=== PATIENT | male | born 1970 | race Caucasian/White ===

== ENCOUNTER → 2020-03-28 08:45 | Outpatient (BNVA) | payer OTHER, SELFPAY | PROVIDERS: PCP Internal Medicine; Referring Provider Internal Medicine; Visit Provider Student in an Organized Health Care Education/Training Program | DX: Z13.89 Encounter for screening for other disorder (principal) ==

== ENCOUNTER 2020-04-21 08:28 | Outpatient (REF) | payer OTHER, SELFPAY ==
[2020-04-21 09:06] LABS: MANUAL DIFF FLAG NO
[2020-04-21 09:11] LABS: Basophils Absolute Auto 0.1 X10*3/uL (0.0-0.2); Basophils Percent Auto 0.6 % (0-2); Eosinophils Absolute Auto 0.3 X10*3/uL (0.0-0.4); Hemoglobin 15.9 g/dl (14.0-18.0); Imm Gran Abs Auto 0.03 X10*3/uL (0.00-0.03); Imm Gran Pct Auto 0.4 % (0.0-0.4); Lymphocytes Absolute Auto 1.9 X10*3/uL (1.2-4.9); Lymphocytes Percent Auto 23.2 % (20-40); Mean Corpuscular HGB Conc 33.8 g/dl (31.0-36.0); Mean Corpuscular Hemoglobin 31.6 pg (27.0-33.0); Mean Corpuscular Volume 93.4 fL (80-98); Monocytes Absolute Auto 0.6 X10*3/uL (0.1-1.2); Monocytes Percent Auto 7.5 % (2-11); Neutrophils Absolute Auto 5.4 X10*3/uL (2.0-8.3); Neutrophils Percent Auto 65.3 % (45-73); Platelet Count 299 X10*3/uL (160-400); Red Blood Count 5.03 X10*6/uL (4.60-5.80); Red Cell Distribution Width 12.3 % (11.0-16.0); White Blood Count 8.2 X10*3/uL (4.8-10.8)
[2020-04-21 09:43] LABS: Alanine Aminotransferase 48 U/L (0-40); Albumin Level 4.7 g/dL (3.5-5.0); Alkaline Phosphatase 88 U/L (39-117); Anion Gap 14 (12-20); Aspartate Amino Transferase 21 U/L (5-37); Bilirubin Total 0.6 mg/dL (0.0-1.0); Blood Urea Nitrogen 14 mg/dL (9-16); C Reactive Protein 0.18 mg/dL (< or = 0.50); Calcium 9.3 mg/dL (8.4-10.2); Carbon Dioxide 23 mmol/L (22-29); Chloride 107 mmol/L (96-108); Estimated Glomerular Filt Rate > 60; Glucose Random 106 mg/dL (60-115); Potassium 4.7 mmol/l (3.3-5.1); Sodium 139 mmol/L (135-145); Total Protein 7.3 g/dL (6.5-8.0)
[2020-04-21 10:03] LABS: Erythrocyte Sedimentation Rate 4 MM/HR (0-15)
== END 2020-04-21 08:29 | disposition home or self-care (01) ==
LOC: HO.LAB 08:28
PROVIDERS: PCP Internal Medicine; Visit Provider Student in an Organized Health Care Education/Training Program
DX: L40.50 Arthropathic psoriasis, unspecified (principal)
CPT/HCPCS: 36415; 80053; 85025; 85652; 86140

== ENCOUNTER → 2020-06-29 08:48 | Outpatient (BNVA) | payer OTHER, SELFPAY | PROVIDERS: Visit Provider Student in an Organized Health Care Education/Training Program ==

== ENCOUNTER 2021-02-02 07:52 | Outpatient (REF) | payer OTHER, SELFPAY ==
[2021-02-02 08:39] LABS: MANUAL DIFF FLAG NO
[2021-02-02 09:07] LABS: Basophils Percent Auto 0.4 % (0-2); Eosinophils Absolute Auto 0.2 X10*3/uL (0.0-0.4); Eosinophils Percent Auto 2.4 % (0-4); Hematocrit 47.4 % (42.0-52.0); Hemoglobin 16.1 g/dl (14.0-18.0); Imm Gran Abs Auto 0.04 X10*3/uL (0.00-0.03); Imm Gran Pct Auto 0.4 % (0.0-0.4); Lymphocytes Absolute Auto 2.3 X10*3/uL (1.2-4.9); Lymphocytes Percent Auto 23.7 % (20-40); Mean Corpuscular Volume 91.3 fL (80.0-98.0); Mean Platelet Volume 10.1 fL (9.4-12.4); Monocytes Absolute Auto 0.7 X10*3/uL (0.1-1.2); Monocytes Percent Auto 6.9 % (2-11); Neutrophils Absolute Auto 6.3 x10*3/uL (2.0-8.3); Neutrophils Percent Auto 66.2 % (45-73); Platelet Count 297 X10*3/uL (160-400); Red Blood Count 5.19 X10*6/uL (4.60-5.80); White Blood Count 9.6 X10*3/uL (4.8-10.8)
[2021-02-02 09:36] LABS: Alanine Aminotransferase 46 U/L (0-40); Albumin Level 4.8 g/dL (3.5-5.0); Alkaline Phosphatase 98 U/L (39-117); Anion Gap 12 (12-20); Aspartate Amino Transferase 22 U/L (5-37); Bilirubin Total 0.5 mg/dL (0.0-1.0); Blood Urea Nitrogen 16 mg/dL (9-16); C Reactive Protein 0.18 mg/dL (< or = 0.50); Calcium 9.8 mg/dL (8.4-10.2); Carbon Dioxide 24 mmol/L (22-29); Chloride 104 mmol/L (96-108); Estimated Glomerular Filt Rate > 60; Glucose Random 114 mg/dL (60-115); Potassium 4.6 mmol/L (3.3-5.1); Sodium 135 mmol/L (135-145); Total Protein 7.5 g/dL (6.5-8.0)
[2021-02-02 10:05] LABS: Erythrocyte Sedimentation Rate 4 MM/HR (0-15)
== END 2021-02-02 07:53 | disposition home or self-care (01) ==
LOC: HO.LAB 07:52
PROVIDERS: PCP Internal Medicine; Visit Provider Nurse Practitioner Family
DX: L40.50 Arthropathic psoriasis, unspecified (principal); Z79.899 Other long term (current) drug therapy
CPT/HCPCS: 36415; 80053; 85025; 85652; 86140

== ENCOUNTER → 2021-02-02 08:28 | Outpatient (BNVA) | payer OTHER, SELFPAY | PROVIDERS: PCP Internal Medicine; Visit Provider Nurse Practitioner Family | DX: L40.50 Arthropathic psoriasis, unspecified (principal); Z23 Encounter for immunization; Z79.899 Other long term (current) drug therapy | CPT/HCPCS: 90686 ==

== ENCOUNTER 2021-03-26 11:50 | Outpatient (REF) | payer OTHER, SELFPAY ==
[2021-03-26 12:46] LABS: Influenza A PCR NEGATIVE (Negative); Influenza B PCR NEGATIVE (Negative); Resp Syncy Virus RNA Qual PCR NEGATIVE (Negative); SARS COV2 PCR INHOUSE POSITIVE (Negative)
== END 2021-03-26 11:51 | disposition home or self-care (01) ==
LOC: HO.LNP 11:50
PROVIDERS: Visit Provider Family Medicine
DX: B34.9 Viral infection, unspecified (principal); Z20.822 Contact with and (suspected) exposure to COVID-19
CPT/HCPCS: 0241U

== ENCOUNTER 2021-06-01 07:52 | Outpatient (REF) | payer OTHER, SELFPAY ==
[2021-06-01 09:01] LABS: MANUAL DIFF FLAG NO
[2021-06-01 09:13] LABS: Basophils Absolute Auto 0.1 X10*3/uL (0.0-0.2); Basophils Percent Auto 0.5 % (0-2); Eosinophils Absolute Auto 0.3 X10*3/uL (0.0-0.4); Eosinophils Percent Auto 3.3 % (0-4); Hematocrit 47.3 % (42.0-52.0); Hemoglobin 15.5 g/dl (14.0-18.0); Imm Gran Abs Auto 0.06 X10*3/uL (0.00-0.03); Imm Gran Pct Auto 0.6 % (0.0-0.4); Lymphocytes Absolute Auto 2.1 X10*3/uL (1.2-4.9); Lymphocytes Percent Auto 21.9 % (20-40); Mean Corpuscular HGB Conc 32.8 g/dl (31.0-36.0); Mean Corpuscular Hemoglobin 30.6 pg (27.0-33.0); Mean Corpuscular Volume 93.5 fL (80.0-98.0); Mean Platelet Volume 9.9 fL (9.4-12.4); Monocytes Absolute Auto 0.8 X10*3/uL (0.1-1.2); Monocytes Percent Auto 8.4 % (2-11); Neutrophils Absolute Auto 6.4 x10*3/uL (2.0-8.3); Neutrophils Percent Auto 65.3 % (45-73); Platelet Count 269 X10*3/uL (160-400); Red Blood Count 5.06 X10*6/uL (4.60-5.80); Red Cell Distribution Width 13.2 % (11.0-16.0); White Blood Count 9.8 X10*3/uL (4.8-10.8)
[2021-06-01 09:37] LABS: Alanine Aminotransferase 32 U/L (0-40); Albumin Level 4.7 g/dL (3.5-5.0); Alkaline Phosphatase 92 U/L (39-117); Anion Gap 13 (12-20); Aspartate Amino Transferase 18 U/L (5-37); Bilirubin Total 0.6 mg/dL (0.0-1.0); Blood Urea Nitrogen 16 mg/dL (9-16); C Reactive Protein 0.19 mg/dL (< or = 0.50); Calcium 10.1 mg/dL (8.4-10.2); Carbon Dioxide 24 mmol/L (22-29); Chloride 107 mmol/L (96-108); Estimated Glomerular Filt Rate > 60; Glucose Random 114 mg/dL (60-115); Potassium 4.9 mmol/L (3.3-5.1); Sodium 139 mmol/L (135-145); Total Protein 7.5 g/dL (6.5-8.0)
[2021-06-01 09:53] LABS: Erythrocyte Sedimentation Rate 2 MM/HR (0-15)
== END 2021-06-01 07:53 | disposition home or self-care (01) ==
LOC: HO.LAB 07:52
PROVIDERS: PCP Internal Medicine; Visit Provider Nurse Practitioner Family
DX: L40.50 Arthropathic psoriasis, unspecified (principal); Z79.899 Other long term (current) drug therapy
CPT/HCPCS: 36415; 80053; 85025; 85652; 86140

== ENCOUNTER 2021-10-10 10:53 | Outpatient (REF) | payer OTHER, SELFPAY ==
[2021-10-10 11:05] LABS: MANUAL DIFF FLAG NO
[2021-10-10 12:02] LABS: Basophils Percent Auto 0.4 % (0-2); Eosinophils Absolute Auto 0.2 X10*3/uL (0.0-0.4); Eosinophils Percent Auto 1.9 % (0-4); Hematocrit 46.1 % (42.0-52.0); Hemoglobin 15.8 g/dl (14.0-18.0); Imm Gran Abs Auto 0.06 X10*3/uL (0.00-0.03); Imm Gran Pct Auto 0.6 % (0.0-0.4); Lymphocytes Percent Auto 18.9 % (20-40); Mean Corpuscular HGB Conc 34.3 g/dl (31.0-36.0); Mean Corpuscular Hemoglobin 31.9 pg (27.0-33.0); Mean Corpuscular Volume 92.9 fL (80.0-98.0); Mean Platelet Volume 10.2 fL (9.4-12.4); Monocytes Absolute Auto 0.9 X10*3/uL (0.1-1.2); Neutrophils Absolute Auto 7.6 x10*3/uL (2.0-8.3); Neutrophils Percent Auto 70.2 % (45-73); Platelet Count 281 X10*3/uL (160-400); Red Blood Count 4.96 X10*6/uL (4.60-5.80); Red Cell Distribution Width 12.3 % (11.0-16.0); White Blood Count 10.8 X10*3/uL (4.8-10.8)
[2021-10-10 12:36] LABS: Alanine Aminotransferase 46 U/L (0-40); Albumin Level 4.9 g/dL (3.5-5.0); Alkaline Phosphatase 89 U/L (39-117); Anion Gap 14 (12-20); Aspartate Amino Transferase 22 U/L (5-37); Bilirubin Total 0.6 mg/dL (0.0-1.0); Blood Urea Nitrogen 12 mg/dL (9-16); C Reactive Protein 0.28 mg/dL (< or = 0.50); Calcium 9.6 mg/dL (8.4-10.2); Carbon Dioxide 23 mmol/L (22-29); Chloride 104 mmol/L (96-108); Estimated Glomerular Filt Rate > 60; Glucose Random 105 mg/dL (60-115); Potassium 4.5 mmol/L (3.3-5.1); Sodium 136 mmol/L (135-145); Total Protein 7.7 g/dL (6.5-8.0)
[2021-10-10 12:42] LABS: Erythrocyte Sedimentation Rate 4 MM/HR (0-15)
== END 2021-10-10 10:54 | disposition home or self-care (01) ==
LOC: HO.LAB 10:53
PROVIDERS: PCP Internal Medicine; Visit Provider Nurse Practitioner Family
DX: L40.50 Arthropathic psoriasis, unspecified (principal); Z79.899 Other long term (current) drug therapy
CPT/HCPCS: 36415; 80053; 85025; 85652; 86140

== ENCOUNTER 2021-10-18 13:26 | Outpatient (REF) | payer OTHER, SELFPAY ==
[2021-10-18 14:34] LABS: Alanine Aminotransferase 41 U/L (0-40); Aspartate Amino Transferase 24 U/L (5-37)
== END 2021-10-18 13:27 | disposition home or self-care (01) ==
LOC: HO.LAB 13:26
PROVIDERS: PCP Internal Medicine; Visit Provider Nurse Practitioner Family
DX: Z79.899 Other long term (current) drug therapy (principal)
CPT/HCPCS: 36415; 84450; 84460

== ENCOUNTER 2021-12-19 08:40 | Outpatient (REF) | payer OTHER, SELFPAY ==
[2021-12-19 10:21] LABS: MANUAL DIFF FLAG NO
[2021-12-19 10:32] LABS: Basophils Percent Auto 0.4 % (0-2); Eosinophils Absolute Auto 0.3 X10*3/uL (0.0-0.4); Eosinophils Percent Auto 3.1 % (0-4); Hemoglobin 16.2 g/dl (14.0-18.0); Imm Gran Abs Auto 0.04 X10*3/uL (0.00-0.03); Imm Gran Pct Auto 0.4 % (0.0-0.4); Lymphocytes Absolute Auto 1.9 X10*3/uL (1.2-4.9); Lymphocytes Percent Auto 21.3 % (20-40); Mean Corpuscular HGB Conc 33.8 g/dl (31.0-36.0); Mean Corpuscular Hemoglobin 30.6 pg (27.0-33.0); Mean Corpuscular Volume 90.7 fL (80.0-98.0); Mean Platelet Volume 9.9 fL (9.4-12.4); Monocytes Absolute Auto 0.6 X10*3/uL (0.1-1.2); Neutrophils Absolute Auto 6.1 x10*3/uL (2.0-8.3); Neutrophils Percent Auto 67.8 % (45-73); Platelet Count 294 X10*3/uL (160-400); Red Blood Count 5.29 X10*6/uL (4.60-5.80); Red Cell Distribution Width 12.3 % (11.0-16.0); White Blood Count 9.1 X10*3/uL (4.8-10.8)
[2021-12-19 10:57] LABS: Alanine Aminotransferase 47 U/L (0-40); Aspartate Amino Transferase 23 U/L (5-37); C Reactive Protein 0.23 mg/dL (< or = 0.50); Estimated Glomerular Filt Rate > 60
[2021-12-19 11:11] LABS: Erythrocyte Sedimentation Rate 6 MM/HR (0-15)
== END 2021-12-19 08:41 | disposition home or self-care (01) ==
LOC: HO.10HDL 08:40
PROVIDERS: Visit Provider Nurse Practitioner Family
DX: L40.50 Arthropathic psoriasis, unspecified (principal); Z79.899 Other long term (current) drug therapy
CPT/HCPCS: 36415; 82565; 84450; 84460; 85025; 85652; 86140

== ENCOUNTER 2021-12-28 09:41 | Outpatient (REF) | payer OTHER, SELFPAY ==
[2021-12-28 10:31] LABS: MANUAL DIFF FLAG NO
[2021-12-28 10:37] LABS: Basophils Percent Auto 0.3 % (0-2); Eosinophils Absolute Auto 0.3 X10*3/uL (0.0-0.4); Eosinophils Percent Auto 3.3 % (0-4); Hematocrit 47.4 % (42.0-52.0); Imm Gran Abs Auto 0.04 X10*3/uL (0.00-0.03); Imm Gran Pct Auto 0.5 % (0.0-0.4); Lymphocytes Absolute Auto 1.8 X10*3/uL (1.2-4.9); Lymphocytes Percent Auto 20.6 % (20-40); Mean Corpuscular HGB Conc 33.8 g/dl (31.0-36.0); Mean Corpuscular Hemoglobin 31.1 pg (27.0-33.0); Mean Platelet Volume 10.1 fL (9.4-12.4); Monocytes Absolute Auto 0.7 X10*3/uL (0.1-1.2); Monocytes Percent Auto 8.1 % (2-11); Neutrophils Absolute Auto 5.8 x10*3/uL (2.0-8.3); Neutrophils Percent Auto 67.2 % (45-73); Platelet Count 286 X10*3/uL (160-400); Red Blood Count 5.15 X10*6/uL (4.60-5.80); Red Cell Distribution Width 12.2 % (11.0-16.0); White Blood Count 8.7 X10*3/uL (4.8-10.8)
[2021-12-28 10:59] LABS: Alanine Aminotransferase 39 U/L (0-40); Aspartate Amino Transferase 21 U/L (5-37); C Reactive Protein 0.21 mg/dL (< or = 0.50); Estimated Glomerular Filt Rate > 60
[2021-12-28 11:13] LABS: Erythrocyte Sedimentation Rate 5 MM/HR (0-15)
[2021-12-28 11:19] LABS: HBS Num1 1.47 mIU/mL (0-7.99); HBc Num1 0.04 S/CO (0.00-0.79); HBsAGNum1 0.18 S/CO (0.00-0.99); Hepatitis A Antibody IgM 0.16 Index (0-0.79); Hepatitis B Core Antibody Nonreactive (Nonreactive); Hepatitis B Surface Antigen Negative (Negative); ~HepC Num1 0.11 S/CO (0.00-0.79); ~Hepatitis A Antibody IgM Nonreactive (Nonreactive); ~Hepatitis B Surface Antibody NONREACTIVE (Nonreactive); ~Hepatitis C Antibody Nonreactive (Nonreactive)
[2022-01-01 12:51] LABS: TS Negative Control Passed; TS Panel A 0; TS Panel B 1; TS Positive Control Passed; TSpotTB Negative (Negative)
== END 2021-12-28 09:42 | disposition home or self-care (01) ==
LOC: HO.10HDL 09:41
PROVIDERS: Visit Provider Nurse Practitioner Family
DX: L40.50 Arthropathic psoriasis, unspecified (principal); Z79.899 Other long term (current) drug therapy
CPT/HCPCS: 36415; 82565; 84450; 84460; 85025; 85652; 86140; 86481; 86704; 86706; 86709; 86803; 87340

== ENCOUNTER 2022-04-10 08:20 | Outpatient (REF) | payer OTHER, SELFPAY ==
[2022-04-10 09:21] LABS: MANUAL DIFF FLAG NO
[2022-04-10 09:44] LABS: Basophils Absolute Auto 0.1 X10*3/uL (0.0-0.2); Basophils Percent Auto 0.6 % (0-2); Eosinophils Absolute Auto 0.4 X10*3/uL (0.0-0.4); Eosinophils Percent Auto 4.3 % (0-4); Hematocrit 46.3 % (42.0-52.0); Hemoglobin 15.7 g/dl (14.0-18.0); Imm Gran Abs Auto 0.02 X10*3/uL (0.00-0.03); Imm Gran Pct Auto 0.2 % (0.0-0.4); Lymphocytes Absolute Auto 2.1 X10*3/uL (1.2-4.9); Lymphocytes Percent Auto 25.4 % (20-40); Mean Corpuscular HGB Conc 33.9 g/dl (31.0-36.0); Mean Corpuscular Hemoglobin 30.4 pg (27.0-33.0); Mean Corpuscular Volume 89.7 fL (80.0-98.0); Monocytes Absolute Auto 0.6 X10*3/uL (0.1-1.2); Monocytes Percent Auto 7.4 % (2-11); Neutrophils Absolute Auto 5.1 x10*3/uL (2.0-8.3); Neutrophils Percent Auto 62.1 % (45-73); Platelet Count 290 X10*3/uL (160-400); Red Blood Count 5.16 X10*6/uL (4.60-5.80); Red Cell Distribution Width 11.9 % (11.0-16.0); White Blood Count 8.2 X10*3/uL (4.8-10.8)
[2022-04-10 10:21] LABS: Alanine Aminotransferase 26 U/L (0-40); Albumin Level 4.6 g/dL (3.5-5.0); Alkaline Phosphatase 89 U/L (39-117); Anion Gap 11 (12-20); Aspartate Amino Transferase 18 U/L (5-37); Bilirubin Total 0.5 mg/dL (0.0-1.0); Blood Urea Nitrogen 15 mg/dL (9-16); Calcium 9.5 mg/dL (8.4-10.2); Carbon Dioxide 23 mmol/L (22-29); Chloride 107 mmol/L (96-108); Estimated Glomerular Filt Rate > 60; Glucose Random 111 mg/dL (60-115); Potassium 4.3 mmol/L (3.3-5.1); Sodium 137 mmol/L (135-145); Total Protein 7.3 g/dL (6.5-8.0)
[2022-04-10 10:31] LABS: Erythrocyte Sedimentation Rate 2 MM/HR (0-15)
== END 2022-04-10 08:21 | disposition home or self-care (01) ==
LOC: HO.LAB 08:20
PROVIDERS: PCP Internal Medicine; Visit Provider Nurse Practitioner Family
DX: L40.50 Arthropathic psoriasis, unspecified (principal); L50.9 Urticaria, unspecified; Z79.899 Other long term (current) drug therapy
CPT/HCPCS: 36415; 80053; 85025; 85652; 86140

== ENCOUNTER → 2022-05-08 07:24 | Outpatient (BNVA) | payer OTHER, SELFPAY | PROVIDERS: PCP Internal Medicine; Visit Provider Nurse Practitioner Family | DX: Z13.89 Encounter for screening for other disorder (principal) ==

== ENCOUNTER → 2022-06-27 07:23 | Outpatient (BNVA) | payer OTHER, SELFPAY | PROVIDERS: PCP Internal Medicine; Visit Provider Nurse Practitioner Family | DX: Z13.89 Encounter for screening for other disorder (principal) ==

== ENCOUNTER 2022-08-09 10:46 | Outpatient (REF) | payer OTHER, SELFPAY ==
[2022-08-09 13:24] LABS: MANUAL DIFF FLAG NO
[2022-08-09 13:33] LABS: Basophils Absolute Auto 0.1 X10*3/uL (0.0-0.2); Basophils Percent Auto 0.5 % (0-2); Eosinophils Absolute Auto 0.3 X10*3/uL (0.0-0.4); Eosinophils Percent Auto 3.3 % (0-4); Hematocrit 45.9 % (42.0-52.0); Hemoglobin 15.5 g/dl (14.0-18.0); Imm Gran Abs Auto 0.03 X10*3/uL (0.00-0.03); Imm Gran Pct Auto 0.3 % (0.0-0.4); Lymphocytes Percent Auto 21.1 % (20-40); Mean Corpuscular HGB Conc 33.8 g/dl (31.0-36.0); Mean Corpuscular Hemoglobin 30.7 pg (27.0-33.0); Mean Corpuscular Volume 90.9 fL (80.0-98.0); Mean Platelet Volume 10.6 fL (9.4-12.4); Monocytes Absolute Auto 0.8 X10*3/uL (0.1-1.2); Neutrophils Absolute Auto 6.4 x10*3/uL (2.0-8.3); Neutrophils Percent Auto 66.8 % (45-73); Platelet Count 287 X10*3/uL (160-400); Red Blood Count 5.05 X10*6/uL (4.60-5.80); Red Cell Distribution Width 12.4 % (11.0-16.0); White Blood Count 9.5 X10*3/uL (4.8-10.8)
[2022-08-09 13:50] LABS: Alanine Aminotransferase 26 U/L (0-40); Albumin Level 4.6 g/dL (3.5-5.0); Alkaline Phosphatase 94 U/L (39-117); Anion Gap 13 (12-20); Aspartate Amino Transferase 17 U/L (5-37); Bilirubin Total 0.6 mg/dL (0.0-1.0); Blood Urea Nitrogen 18 mg/dL (9-16); C Reactive Protein 0.14 mg/dL (< or = 0.50); Calcium 9.3 mg/dL (8.4-10.2); Carbon Dioxide 25 mmol/L (22-29); Chloride 105 mmol/L (96-108); Estimated Glomerular Filt Rate > 60; Glucose Random 96 mg/dL (60-115); Potassium 4.6 mmol/L (3.3-5.1); Sodium 138 mmol/L (135-145); Total Protein 7.2 g/dL (6.5-8.0)
[2022-08-09 14:19] LABS: Erythrocyte Sedimentation Rate 3 MM/HR (0-15)
== END 2022-08-09 10:47 | disposition home or self-care (01) ==
LOC: HO.10HDL 10:46
PROVIDERS: Visit Provider Nurse Practitioner Family
DX: L40.50 Arthropathic psoriasis, unspecified (principal)
CPT/HCPCS: 36415; 80053; 85025; 85652; 86140

== ENCOUNTER 2022-10-08 07:49 | Outpatient (AMB) | payer OTHER, SELFPAY ==
[2022-10-08 08:07] VITALS: BP 121/80; PULSE 80; TEMP 36.5; BMI 31.1
--- NOTE | 2022-10-08 08:07 | A.OFFVIS_ITS ---
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 Doing well overall. Compliant with Enbrel weekly. Denies any joint swelling. Gets occasional short-lived and joint pain and stiffness with activity. Occasionally takes an Aleve or Advil once a week when he is going out to play golf. Denies any psoriasis skin lesions. Continues to have psoriatic nails in the left hand. those have not improved or progressed [facility] Medical History Deviated nasal septum Hyperlipidemia PSA (psoriatic arthritis) Psoriasis Steatosis, liver Surgical History History of nasal surgery Family History Father Diabetes HTN (hypertension) Mother Diabetes Social History Household Members: Spouse Housing: House Alcohol intake: current Alcohol intake frequency: holidays/special occasions only Patient Tobacco Use Status: Former Tobacco user Review of Systems [facility] [place] Physical Exam Const General: cooperative and healthy appearing Nutritional Appearance: obese Orientation/consciousness: patient oriented x3 Limitations: no limitations HEENT Head: Yes normocephalic and Yes atraumatic Mouth: moist mucous membranes Resp Effort & Inspection: normal respiratory effort and able to speak in complete sentences Auscultation: clear to auscultation bilaterally GI Inspection: No distended Palpation (GI): Soft to palpation and nontender Neuro General: patient oriented x3 Extrem Other: Minimal osteoarthritic changes of both hands. No active synovitis Left hand nail onycholysis Assessment & Plan Assessment & Plan (1) PSA (psoriatic arthritis): Comment: Methotrexate: Treated for 13 years. Stopped December 2021 due to increased LFTs. Humira: 02/2022 -March 2021. Stopped due to diffuse rash and hives Enbrel: April 2021 to present Code(s): L40.50 - Arthropathic psoriasis, unspecified Plan: Psoriatic arthritis appears well controlled on Enbrel. Patient is tolerating Enbrel without issue. Joint pain is well controlled. No synovitis on exam. He continues to have some nail onycholysis on his left hand. Not bothersome for him. Recent blood work unremarkable. Continue Enbrel once weekly Blood work before next visit in 4 months Orders: Orders Comprehensive Met. Panel 4 Months L40.50 - Arthropathic psoriasis, unspecified C Reactive Protein 4 Months L40.50 - Arthropathic psoriasis, unspecified Complete Blood Count Auto Diff 4 Months L40.50 - Arthropathic psoriasis, unspecified Erythrocyte Sedimentation Rate 4 Months L40.50 - Arthropathic psoriasis, unspecified T Spot TB 4 Months Z11.7 - Encounter for testing for latent tuberculosis infect ion Coding Level of Care Code Est Pt Level 3 (59195) Diagnoses PSA (psoriatic arthritis) L40.50
== END 2022-10-08 08:16 | disposition home or self-care (01) ==
PROVIDERS: PCP Internal Medicine; Visit Provider Student in an Organized Health Care Education/Training Program
DX: L40.50 Arthropathic psoriasis, unspecified (principal)
CPT/HCPCS: 99213

== ENCOUNTER → 2022-10-08 07:49 | Outpatient (BNVA) | payer OTHER, SELFPAY | PROVIDERS: PCP Internal Medicine; Visit Provider Student in an Organized Health Care Education/Training Program | DX: L40.50 Arthropathic psoriasis, unspecified (principal) ==

== ENCOUNTER 2023-01-07 14:49 | Outpatient (AMB) | payer OTHER, SELFPAY ==
[2023-01-07 14:54] VITALS: BP 128/74; PULSE 86; O2SAT 98; BMI 31.0
--- NOTE | 2023-01-07 14:54 | A.OFFPC_ITS ---
Vital Signs 01/07/23 14:54 Height 6 ft 3 in Weight 248 lb BMI 31.0 BP 128/74 Blood Pressure Location Rt radial Position Sitting Pulse 86 Pulse Source Pulse Oximeter Pulse Oximetry (%) 98 Oxygen Delivery Method Room Air Intake Visit Reasons: est care Intake Note: Patient is here as new patient, he would like to get a physical. Allergies adalimumab [From Humira(CF)] Allergy (Severe, Verified 01/07/23 15:03) Hives Tobacco use date assessed: 01/07/23 Dental Screening Dental Screen Date: 01/07/23 Did you have a dental visit in the last 12 months?: No Did you have a dental problem in the last 6 months where you did not have access to dental care?: No Was dental information given to patient?: No HPI est care HPI Details New patient Prior PCP:? Dr Montano Last office visit/CPE: Acute issue(s): Anxiety PMHx: Psoriatic Arthritis, SurgHx: Dev Septum FHx:Mom: CAD. Dad: CAD, HTN SocHx: Quit 20 yrs ago. EtOH 2 beers a night but a few on weekends. No drugs PFSH Medical History Hyperlipidemia Deviated nasal septum Steatosis, liver Psoriasis PSA (psoriatic arthritis) Surgical History History of nasal surgery Family History Father Diabetes HTN (hypertension) Mother Diabetes Social History Household Members: Spouse Housing: House Alcohol intake: current Alcohol intake frequency: holidays/special occasions only Patient Tobacco Use Status: Former Tobacco user e-Cigarette/Vaping Use: Never Used Current occupational status: employed Cognitive needs: No Hearing needs: No Vision needs: No Questionnaire PHQ-9 Over the last 2 weeks, how often have you been bothered by any of the following problems? 1. Little interest or pleasure in doing things: not at all 2. Feeling down, depressed, or hopeless: not at all 3. Trouble falling or staying asleep, or sleeping too much: not at all 4. Feeling tired or having little energy: not at all 5. Poor appetite or overeating: not at all 6. Feeling bad about yourself - or that you are a failure or have let yourself or your family down: not at all 7. Trouble concentrating on things, such as reading the newspaper or watching television: not at all 8. Moving or speaking so slowly that other people could have noticed. Or the opposite - being so fidgety or restless that you have been moving around a lot more than usual: not at all 9. Thoughts that you would be better off or of hurting yourself in some way: not at all Total score: 0 Source: Developed by Drs. Alphonso Matute, Karla Macario, Dougie Cha and colleagues, with an educational cristina from [employer]. Thrive Questionnaire Date Thrive assessed: 01/07/23 I am a: Patient What is your living situation today?: I have a steady place to live Within the past 12 months, did the food you bought not last and you didn't have the money to get more?: Never true Within the past 12 months, did you worry whether your food would run out before you got money to buy more?: Never true Do you have trouble paying for medicines?: No Do you have trouble getting transportation to medical appointments?: No Do you have trouble paying your heating and electricity bill?: No Do you have trouble taking care of your child, family member or friend?: No Do you have trouble with day-to-day activities such as bathing, preparing meals, shopping, managing finances, etc.?: No Are you currently unemployed and looking for a job?: No Are you interested in more education?: No AUDIT C Alcohol Use Questionnaire (AUDIT-C) 1. How often do you have a drink containing alcohol?: 4 or more times a week 2. How many drinks containing alcohol do you have on a typical day when you are drinking?: 3 or 4 3. How often do you have six or more drinks on one occasion?: Less than monthly Total Score: 6 DEREK-7 AMB Questionnaire DEREK-7 Date DEREK - 7 assessed: 01/07/23 Feeling nervous, anxious, or on edge: 3 = Nearly every day Not being able to stop or control worryin = Nearly every day Worrying too much about different things: 3 = Nearly every day Trouble relaxin = Nearly every day Being so restless that it is hard to sit still: 2 = More than half the days Becoming easily annoyed or irritable: 0 = Not at all Feeling afraid as if something awful might happen: 2 = More than half the days Total DEREK-7 score (0-4 normal; 5-9 mild; 10-14 moderate; 15-21 severe): 16 Source: Developed by Drs. Alphonso Matute, Karla Macario, Dougie Cha and colleagues, with an educational cristina from [employer]. Review of Systems Const Denies chills, Denies fatigue, Denies fever(s), Denies headache(s) and Denies weakness ENT Denies dizziness and Denies headache(s) Card Denies chest pain, Denies lightheadedness, Denies dyspnea and Denies other (Palpitations) Resp Denies cough, Denies dyspnea, Denies wheezing and Denies other ( shortness of breath) Musc Denies numbness and Denies tingling Neuro Denies dizziness, Denies headache(s), Denies numbness, Denies tingling, Denies paresthesias and Denies weakness Psych Reports anxiety and Denies depression Endo Denies fatigue Aller/Immun Denies wheezing Physical exam (Primary Care) Vital Signs: Last Vital Signs Pulse 86 01/07/23 14:54 BP 128/74 01/07/23 14:54 Pulse Ox 98 01/07/23 14:54 Oxygen Delivery Method Room Air 01/07/23 14:54 BMI result Body Mass Index 31.0 Tobacco/Smoking Status: Tobacco use Status Tobacco use date assessed 01/07/23 01/07/23 15:16 Patient Tobacco Use Status Former Tobacco user 01/07/23 15:00 e-Cigarette/Vaping Use Never Used 01/07/23 15:16 PHQ-9: PHQ-9 Score PHQ-9: Total score 0 01/07/23 16:20 Thrive Assessment: Date of Thrive Assessment Date Thrive assessed 01/07/23 01/07/23 15:16 Const General: no acute distress and well developed Nutritional Appearance: well nourished Orientation/consciousness: patient oriented x3 HENMT Head: Yes normocephalic and Yes atraumatic Eyes General: appearance normal, both eyes and all related structures Pupils: Equal, round and reactive pupils present EOM: EOMs intact bilaterally Resp Effort & Inspection: normal respiratory effort Auscultation: clear to auscultation bilaterally Cardio Rate: regular rate Rhythm: regular rhythm Heart sounds: S1 normal heart sound present, S2 normal heart sound present, no gallops, no murmurs and no rubs Neuro General: patient oriented x3 and gait normal Cranial nerves: Yes Equal, round and reactive pupils present Psych Affect: normal affect Assessment and Plan Assessment & Plan (1) Adult general medical exam: Code(s): Z00.00 - Encounter for general adult medical examination without abnormal findings Plan: 52-year-old?male?presents?as?new?patient?for?complete?physical?exam Encouraged?healthy?diet?with?active?lifestyle?and?plenty?of?exercise (2) Anxiety: Code(s): F41.9 - Anxiety disorder, unspecified Plan: Patient?notes?mild?but?worsening?anxiety?as?he?gets?older Declines?referral?to?therapy?and?medications?for?now.??I?made?him?aware?that?the se?are?available. Encouraged?exercise (3) PSA (psoriatic arthritis): Comment: Methotrexate: Treated for 13 years. Stopped December 2021 due to increased L FTs. Humira: 02/2022 -March 2021. Stopped due to diffuse rash and hives Enbrel: April 2021 to present Code(s): L40.50 - Arthropathic psoriasis, unspecified Plan: Continue?enteral Follow-up?with?hand?specialist?as?recommended (4) Screening for prostate cancer: Code(s): Z12.5 - Encounter for screening for malignant neoplasm of prostate Plan: Check?PSA (5) Screening for colon cancer: Code(s): Z12.11 - Encounter for screening for malignant neoplasm of colon Plan: Referred?to?GI Orders: Orders Microalbumin, Random (w Creat) Today I10 - Essential (primary) hypertension Prostate Specific Antigen Scr Today Z12.5 - Encounter for screening for malignant neoplasm of prostate TSH reflex Free T4 Today Z00.00 - Encounter for general adult medical examination without abnormal findings Comprehensive [place]. Panel Fast Today Z00.00 - Encounter for general adult medical examination without abnormal findings Complete Blood Count Auto Diff Today Z00.00 - Encounter for general adult medical examination without abnormal findings Lipid Panel Today Z00.00 - Encounter for general adult medical examination without abnormal findings UA and rflx microscopic Today Z00.00 - Encounter for general adult medical examination without abnormal findings Referrals Gastroenterology Referral Z12.11 - Encounter for screening for malignant neoplasm of colon Coding Level of Care Code Est Pt Level 3 (97282) Diagnoses Adult general medical exam Z00.00 Anxiety F41.9 PSA (psoriatic arthritis) L40.50 Screening for prostate cancer Z12.5 Screening for colon cancer Z12.11
== END 2023-01-07 16:38 | disposition home or self-care (01) ==
PROVIDERS: PCP Internal Medicine; Visit Provider Family Medicine
DX: Z00.00 Encounter for general adult medical examination without abnormal findings (principal); L40.50 Arthropathic psoriasis, unspecified; F41.9 Anxiety disorder, unspecified
CPT/HCPCS: 99396

== ENCOUNTER 2023-01-09 07:51 | Outpatient (REF) | payer OTHER, SELFPAY ==
[2023-01-09 11:11] LABS: MANUAL DIFF FLAG NO
[2023-01-09 11:24] LABS: Appearance Urine Clear; Color Urine Yellow; Glucose Urine UA Negative (Negative); Leukocyte Esterase Urine Negative (Negative); Nitrite Urine Negative (Negative); PH 5.5 (5.0-9.0); Urine Blood Negative (Negative); Urine Ketones Negative (Negative); Urine Protein Negative (Neg-Trace)
[2023-01-09 11:25] LABS: Basophils Percent Auto 0.5 % (0-2); Eosinophils Absolute Auto 0.3 X10*3/uL (0.0-0.4); Eosinophils Percent Auto 3.8 % (0-4); Hematocrit 48.2 % (42.0-52.0); Hemoglobin 16.6 g/dl (14.0-18.0); Imm Gran Abs Auto 0.03 X10*3/uL (0.00-0.03); Imm Gran Pct Auto 0.3 % (0.0-0.4); Lymphocytes Absolute Auto 2.1 X10*3/uL (1.2-4.9); Lymphocytes Percent Auto 24.2 % (20-40); Mean Corpuscular HGB Conc 34.4 g/dl (31.0-36.0); Mean Corpuscular Volume 89.9 fL (80.0-98.0); Mean Platelet Volume 10.1 fL (9.4-12.4); Monocytes Absolute Auto 0.6 X10*3/uL (0.1-1.2); Monocytes Percent Auto 6.9 % (2-11); Neutrophils Absolute Auto 5.6 x10*3/uL (2.0-8.3); Neutrophils Percent Auto 64.3 % (45-73); Platelet Count 277 X10*3/uL (160-400); Red Blood Count 5.36 X10*6/uL (4.60-5.80); Red Cell Distribution Width 11.9 % (11.0-16.0); White Blood Count 8.8 X10*3/uL (4.8-10.8)
[2023-01-09 12:03] LABS: Prostate Specific Antigen Scr 0.36 ng/mL (<0.05-4.0)
[2023-01-09 12:41] LABS: TSH reflex Free T4 0.85 uIU/mL (0.32-4.0)
[2023-01-09 12:47] LABS: Anion Gap 12 (12-20)
[2023-01-09 12:52] LABS: Alanine Aminotransferase 32 U/L (0-40); Albumin Level 4.7 g/dL (3.5-5.0); Alkaline Phosphatase 83 U/L (39-117); Aspartate Amino Transferase 17 U/L (5-37); Bilirubin Total 0.5 mg/dL (0.0-1.0); Blood Urea Nitrogen 15 mg/dL (9-16); Calcium 9.8 mg/dL (8.4-10.2); Carbon Dioxide 23 mmol/L (22-29); Chloride 106 mmol/L (96-108); Cholesterol 235 mg/dL (<200); Estimated Glomerular Filt Rate > 60; Glucose Fasting 117 mg/dL (60-99); HDL Cholesterol 44 mg/dL (>40); LDL Cholesterol Calculated 160 mg/dL (<100); Potassium 4.2 mmol/L (3.3-5.1); Sodium 137 mmol/L (135-145); Total Protein 7.8 g/dL (6.5-8.0); Triglycerides 158 mg/dL (<150)
[2023-01-09 13:19] LABS: Creatinine Urine 180.85 mg/dL; Microalbum/Creatinine Ratio Ur 4.4 ug/mg cr (<30)
== END 2023-01-09 07:52 | disposition home or self-care (01) ==
LOC: HO.WFDLDS 07:51
PROVIDERS: Visit Provider Family Medicine
DX: Z00.00 Encounter for general adult medical examination without abnormal findings (principal); Z12.5 Encounter for screening for malignant neoplasm of prostate; I10 Essential (primary) hypertension
CPT/HCPCS: 36415; 80053; 80061; 81003; 82043; 82570; 84153; 84443; 85025

== ENCOUNTER 2023-01-31 10:23 | Outpatient (REF) | payer OTHER, SELFPAY ==
[2023-01-31 12:23] LABS: Erythrocyte Sedimentation Rate 4 MM/HR (0-15)
[2023-02-03 12:08] LABS: TS Negative Control Passed; TS Panel A 0; TS Panel B 1; TS Positive Control Passed; TSpotTB Negative (Negative)
== END 2023-01-31 10:24 | disposition home or self-care (01) ==
LOC: HO.10HDL 10:23
PROVIDERS: Visit Provider Student in an Organized Health Care Education/Training Program
DX: Z11.7 Encounter for testing for latent tuberculosis infection (principal); L40.50 Arthropathic psoriasis, unspecified
CPT/HCPCS: 36415; 85652; 86140; 86481

== ENCOUNTER 2023-02-04 09:57 | Outpatient (AMB) | payer OTHER, SELFPAY ==
--- NOTE | 2023-02-04 09:45 | A.OFFPC_ITS ---
Intake Visit Reasons: f/u CPE-labs Intake Note: Patient is calling today to follow up on labs today. Allergies adalimumab [From Humira(CF)] Allergy (Severe, Verified 02/04/23 09:47) Hives Tobacco use date assessed: 02/04/23 HPI f/u CPE-labs HPI Details 52 y/o male presents to f/u CPE-labs via telemedicine. Labs were drawn 01/09/23. Reviewed labs with pt. Elevated fasting glucose of 117. Triglycerides 158. TC 235. LDL 160. HDL 44. PFSH Medical History (Updated 02/04/23 @ 10:39 by Tahir Clemens) Hyperlipidemia Deviated nasal septum Steatosis, liver Psoriasis PSA (psoriatic arthritis) Surgical History History of nasal surgery Family History Father Diabetes HTN (hypertension) Mother Diabetes Social History Household Members: Spouse Housing: House Alcohol intake: current Alcohol intake frequency: holidays/special occasions only Patient Tobacco Use Status: Former Tobacco user e-Cigarette/Vaping Use: Never Used Current occupational status: employed Cognitive needs: No Hearing needs: No Vision needs: No Questionnaire Thrive Questionnaire Date Thrive assessed: 01/07/23 DEREK-7 AMB Questionnaire DEREK-7 Date DEREK - 7 assessed: 01/07/23 Source: Developed by Drs. Alphonso Matute, Karla Macario, Dougie Cha and colleagues, with an educational cristina from [employer]. Review of Systems Const Denies chills, Denies fatigue, Denies fever(s), Denies headache(s) and Denies weakness ENT Denies dizziness and Denies headache(s) Card Denies dyspnea Resp Denies cough, Denies dyspnea, Denies wheezing and Denies other (shortness of breath) Musc Denies numbness and Denies tingling Neuro Denies dizziness, Denies headache(s), Denies numbness, Denies tingling and Denies weakness Psych Denies anxiety and Denies depression Endo Denies fatigue Aller/Immun Denies wheezing Physical exam (Primary Care) Tobacco/Smoking Status: Tobacco use Status Tobacco use date assessed 02/04/23 02/04/23 09:49 Patient Tobacco Use Status Former Tobacco user 02/04/23 09:49 e-Cigarette/Vaping Use Never Used 02/04/23 09:49 Thrive Assessment: Date of Thrive Assessment Date Thrive assessed 01/07/23 02/04/23 09:49 Telehealth Telehealth Location of provider rendering services: practice address Location of patient: other Patient Identification confirmed using: Name, : Yes Telehealth method: voice only Patient verbally consented to treatment: Yes Patient verbally consented to billing insurance company: Yes Patient informed of any privacy concerns related to visit: Yes Minutes spent on Phone/Video with Pt.: 5 Assessment and Plan Assessment & Plan (1) Elevated fasting glucose: Code(s): R73.01 - Impaired fasting glucose Plan: Fasting?blood?sugar?117?with?a?good?fast. He?also?has?a?family?history?of?diabetes Will?have?him?repeat?fasting?blood?sugar?along?with?an?A1c?test (2) Hyperlipidemia: Code(s): E78.5 - Hyperlipidemia, unspecified Plan: LDL?cholesterol?160?and?goal?is?less?than?130?or?if?patient?has?diabetes,?less?t stevenson?100 He?will?work?on?a?diet?lower?in saturated?fats?and?cholesterol Will?discuss?further?after?blood?work?and?may?need?by?statin?medication. Orders: Orders Comprehensive [place]. Panel Fast Today R73.01 - Impaired fasting glucose, Z00.00 - Encounter for general adult medical examination without abnormal findings Hemoglobin A1c Today R73.01 - Impaired fasting glucose Lipid Panel Today E78.5 - Hyperlipidemia, unspecified, Z00.00 - Encounter for general adult medical examination without abnormal findings Coding Level of Care Code Tele Est Pt Level 2 (50666) Diagnoses Elevated fasting glucose R73.01 Hyperlipidemia E78.5
== END 2023-02-04 10:57 | disposition home or self-care (01) ==
LOC: HO.HMGFM 09:57
PROVIDERS: PCP Family Medicine; Visit Provider Family Medicine
DX: R73.01 Impaired fasting glucose (principal); E78.5 Hyperlipidemia, unspecified
CPT/HCPCS: 99212

== ENCOUNTER 2023-02-05 07:35 | Outpatient (AMB) | payer OTHER, SELFPAY ==
[2023-02-05 07:37] VITALS: BP 112/80; PULSE 87; TEMP 36.1; O2SAT 95; BMI 31.8
--- NOTE | 2023-02-05 07:37 | MHC.OFFVIS ---
Intake Vital Signs 02/05/23 07:37 Height 6 ft 3 in Weight 254 lb 10.142 oz BMI 31.8 BP 112/80 Blood Pressure Location Lt brachial Position Sitting Pulse 87 Pulse Source Pulse Oximeter Temp 97 F Temp Source Skin Pulse Oximetry (%) 95 Oxygen Delivery Method Room Air Intake Visit Reasons: PsA Intake Note: Patient presents today for PsA follow up. Reports no concerns. 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 Doing well overall. Compliant with Enbrel weekly. Denies any joint pain or swelling. Sometimes feels some joint stiffness that is alleviated with Aleve. . Denies any psoriasis skin lesions. Continues to have psoriatic nails in the left hand. those have not improved or progressed. Had a flu-like illness a few weeks ago with headaches and stuffy nose, he held 1 dose of Enbrel. This has resolved. [facility] Medical History (Updated 02/05/23 @ 07:53 by Ellis Mason MD) Hyperlipidemia Deviated nasal septum Steatosis, liver Psoriasis PSA (psoriatic arthritis) Surgical History History of nasal surgery Family History Father Diabetes HTN (hypertension) Mother Diabetes Social History Household Members: Spouse Housing: House Alcohol intake: current Alcohol intake frequency: holidays/special occasions only Patient Tobacco Use Status: Former Tobacco user e-Cigarette/Vaping Use: Never Used Current occupational status: employed Cognitive needs: No Hearing needs: No Vision needs: No Review of Systems Musc Denies arthralgias and Reports stiffness Skin/Breast Details: Nail psoriasis Physical Exam Vital Signs: Last Vital Signs Temp 97 F 02/05/23 07:37 Pulse 87 02/05/23 07:37 BP 112/80 02/05/23 07:37 Pulse Ox 95 02/05/23 07:37 Oxygen Delivery Method Room Air 02/05/23 07:37 BMI result Body Mass Index 31.8 Const General: cooperative and healthy appearing Nutritional Appearance: obese Orientation/consciousness: patient oriented x3 Limitations: no limitations HEENT Head: Yes normocephalic and Yes atraumatic Resp Effort & Inspection: normal respiratory effort and able to speak in complete sentences GI Inspection: No distended Palpation (GI): Soft to palpation and nontender Neuro General: patient oriented x3 Extrem Other: Minimal osteoarthritic changes of both hands. No active synovitis Left hand nail onycholysis Assessment & Plan Assessment & Plan (1) PSA (psoriatic arthritis): Comment: Methotrexate: Treated for 13 years. Stopped December 2021 due to increased LFTs. Humira: 02/2022 -March 2021. Stopped due to diffuse rash and hives Enbrel: April 2021 to present effective Code(s): L40.50 - Arthropathic psoriasis, unspecified Plan: Psoriatic arthritis appears well controlled on Enbrel. Patient is tolerating Enbrel without issue. Joint pain is well controlled. No synovitis on exam. He continues to have some nail onycholysis on his left hand. Not bothersome for him. Recent blood work unremarkable. Continue Enbrel once weekly Blood work before next visit in 6 months (2) Immunization counseling: Code(s): Z71.85 - Encounter for immunization safety counseling Plan: Discussed ACR vaccination guidelines for us with autoimmune rheumatic disease. Patient stated that he is planning to get a flu vaccine for this season. He is not interested in did new COVID booster states that he has had shingles infection a few years ago. Plan I spent 26 minutes reviewing patient's chart, evaluating patient, ordering diagnostic workup, counseling patient and documenting in the chart Orders: Orders Comprehensive Met. Panel 6 Months L40.50 - Arthropathic psoriasis, unspecified C Reactive Protein 6 Months L40.50 - Arthropathic psoriasis, unspecified Erythrocyte Sedimentation Rate 6 Months L40.50 - Arthropathic psoriasis, unspecified Complete Blood Count Auto Diff 6 Months L40.50 - Arthropathic psoriasis, unspecified Coding Level of Care Code Est Pt Level 4 (99446) Diagnoses PSA (psoriatic arthritis) L40.50 Immunization counseling Z71.85
== END 2023-02-05 07:52 | disposition home or self-care (01) ==
PROVIDERS: PCP Family Medicine; Visit Provider Student in an Organized Health Care Education/Training Program
DX: L40.50 Arthropathic psoriasis, unspecified (principal); Z71.85 Encounter for immunization safety counseling
CPT/HCPCS: 99214

== ENCOUNTER → 2023-02-05 07:35 | Outpatient (BNVA) | payer OTHER, SELFPAY | PROVIDERS: PCP Family Medicine; Visit Provider Student in an Organized Health Care Education/Training Program ==

== ENCOUNTER 2023-02-19 08:50 | Outpatient (AMB) | payer OTHER, SELFPAY ==
--- NOTE | 2023-02-19 09:01 | MHC.OFFVIS ---
Intake Vital Signs 02/19/23 09:02 Height 6 ft 3 in Weight 250 lb BMI 31.2 BP 134/82 Blood Pressure Location Lt brachial Position Sitting Pulse 77 Intake Visit Reasons: Colonoscopy Screening Intake Note: Patient new consult for 1st pre colonoscopy screening. Patient denies any GI issues. 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 Accompanied by: Self / Same As Patient Allergies adalimumab [From Humira(CF)] Allergy (Severe, Verified 02/19/23 09:01) Hives Medication List - Last Reconciled 02/19/23 by Diana Flores PA-C etanercept (Enbrel SureClick) 50 mg subcut QWEEK HPI HPI Comments History of Present Illness Details A 52-year-old male referred for index screening colonoscopy He has no GI complaints No family history GI cancer He has a good appetite, he has a normal bowel pattern No cardiac or respiratory issues No nausea, vomiting, hematemesis, hematochezia fever or chills PFSH Medical History Hyperlipidemia Deviated nasal septum Steatosis, liver Psoriasis PSA (psoriatic arthritis) Surgical History History of nasal surgery Family History Father Diabetes HTN (hypertension) Mother Diabetes Social History Household Members: Spouse Housing: House Alcohol intake: current Alcohol intake frequency: holidays/special occasions only Patient Tobacco Use Status: Former Tobacco user e-Cigarette/Vaping Use: Never Used Current occupational status: employed Cognitive needs: No Hearing needs: No Vision needs: No Review of Systems Const All systems reviewed & are unremarkable except as noted in HPI and below Card Denies chest pain and Denies dyspnea Resp Denies dyspnea GI Denies abdominal pain, Denies hematochezia, Denies heartburn, Denies nausea and Denies vomiting Physical Exam Vital Signs: Last Vital Signs Pulse 77 02/19/23 09:02 BP 134/82 02/19/23 09:02 BMI result Body Mass Index 31.2 Const General: cooperative, healthy appearing, comfortable and no acute distress Orientation/consciousness: patient oriented x3 Limitations: no limitations Eyes Sclerae: sclerae normal Resp Effort & Inspection: normal respiratory effort and able to speak in complete sentences Auscultation: clear to auscultation bilaterally, no rales, no rhonchi and no wheezes Cardio Rate: regular rate Rhythm: regular rhythm Heart sounds: S1 normal heart sound present and S2 normal heart sound present GI Palpation (GI): Soft to palpation and nontender Auscultation: normal bowel sounds Skin General skin exam: no rashes or lesions noted Neuro General: patient oriented x3 Extrem General: Yes full ROM Psych Appearance: grossly normal and well kempt Mental Status: mental status grossly normal Speech and movement: Normal speech and movement present and Clear speech present Affect: normal affect Attitude: cooperative Thought process: Normal thought process present Thought content: Normal thought content present Insight: Good insight present (Psych) Judgement: Good judgement present (Psych) Assessment & Plan Assessment & Plan (1) Screening for colon cancer: Code(s): Z12.11 - Encounter for screening for malignant neoplasm of colon Plan: Index screening colonoscopy MiraLax Gatorade prep Plan index screening colonscopy Orders: Orders Colonoscopy - GI Use Only Today Z12.11 - Encounter for screening for malignant neoplasm of colon Medications: New bisacodyl (Dulcolax (bisacodyl)) Day before procedure, prep day Take 4 tablets by mouth upon awakening followed by large glass of water 20 mg (4 x 5 mg) PO ONCE 4 tabs 0RF colonoscopy prep 1 day Z12.11 - Encounter for screening for malignant neoplasm of colon polyethylene glycol 3350 (Miralax) Take as directed by mouth the day before your procedure. 238 grams PO ONCE PRN 238 grams 0RF laxative effect 1 day Patient Instructions: Very pleasant 52-year-old Gent Index screening colonoscopy MiraLax Gatorade prep, reviewed, literature given Rare risks discuss, Will be escorted due to anesthesia Encouraged to call with questions or concerns Coding Level of Care Code New Pt Level 3 (71618) Diagnoses Screening for colon cancer Z12.11 Time Spent (min) 25
[2023-02-19 09:02] VITALS: BP 134/82; PULSE 77; BMI 31.2
== END 2023-02-19 10:43 | disposition home or self-care (01) ==
PROVIDERS: PCP Family Medicine; Visit Provider Physician Assistant
DX: Z01.818 Encounter for other preprocedural examination (principal); Z12.11 Encounter for screening for malignant neoplasm of colon
CPT/HCPCS: S0285

== ENCOUNTER → 2023-02-19 08:50 | Outpatient (BNVA) | payer OTHER, SELFPAY | PROVIDERS: PCP Family Medicine; Visit Provider Physician Assistant ==

== ENCOUNTER 2023-03-12 07:33 | Outpatient (REF) | payer OTHER, SELFPAY ==
[2023-03-12 11:55] LABS: Estimated Average Glucose 114 mg/dL; Hemoglobin A1C 150.8949 umol/L; Hemoglobin A1c % 5.6 % (<6.0)
[2023-03-12 12:04] LABS: Alanine Aminotransferase 26 U/L (0-40); Albumin Level 4.5 g/dL (3.5-5.0); Alkaline Phosphatase 82 U/L (39-117); Anion Gap 11 (12-20); Aspartate Amino Transferase 15 U/L (5-37); Bilirubin Total 0.4 mg/dL (0.0-1.0); Blood Urea Nitrogen 17 mg/dL (9-16); Calcium 9.4 mg/dL (8.4-10.2); Carbon Dioxide 23 mmol/L (22-29); Chloride 109 mmol/L (96-108); Cholesterol 218 mg/dL (<200); Estimated Glomerular Filt Rate > 60; Glucose Fasting 123 mg/dL (60-99); HDL Cholesterol 43 mg/dL (>40); LDL Cholesterol Calculated 150 mg/dL (<100); Potassium 4.3 mmol/L (3.3-5.1); Sodium 139 mmol/L (135-145); Total Protein 7.6 g/dL (6.5-8.0); Triglycerides 127 mg/dL (<150)
== END 2023-03-12 07:34 | disposition home or self-care (01) ==
LOC: HO.WFDLDS 07:33
PROVIDERS: Visit Provider Family Medicine
DX: Z00.00 Encounter for general adult medical examination without abnormal findings (principal); E78.5 Hyperlipidemia, unspecified; R73.01 Impaired fasting glucose
CPT/HCPCS: 36415; 80053; 80061; 83036

== ENCOUNTER 2023-03-20 08:34 | Outpatient (AMB) | payer OTHER, SELFPAY ==
--- NOTE | 2023-03-20 08:36 | MHC.PC.OV ---
Vital Signs 03/20/23 08:37 Height 6 ft 3 in Weight 258 lb BMI 32.2 BP 128/70 Blood Pressure Location Lt brachial Position Sitting Respiration 13 Pulse 89 Pulse Source Pulse Oximeter Pulse Oximetry (%) 96 Oxygen Delivery Method Room Air Intake Visit Reasons: f/u elevated fasting blood sugars and HLD Intake Note: Patient is here to follow up with fasting blood sugars and labs obtained on 03/12/23. Patient's A1C was completed on 03/12/23 with a result of 5.6. Patient reports he has no concern at this time. Polls Or Surveys Interviewer Required: No Accompanied by: Self / Same As Patient Allergies adalimumab [From Humira(CF)] Allergy (Severe, Verified 03/20/23 08:47) Hives Tobacco use date assessed: 02/04/23 HPI f/u elevated fasting blood sugars and HLD HPI Details 52 y/o male presents to f/u elevated fasting blood sugars and HLD. Labs were drawn 03/12/23. Reviewed labs with pt. A1c 5.6%. Triglycerides 127. TC 218. LDL 150. HDL 43. He notes he feels like he could make further improvement with diet and exercise. [facility] Medical History Hyperlipidemia Deviated nasal septum Steatosis, liver Psoriasis PSA (psoriatic arthritis) Surgical History History of nasal surgery Family History Father Diabetes HTN (hypertension) Mother Diabetes Social History Household Members: Spouse Housing: House Alcohol intake: current Alcohol intake frequency: holidays/special occasions only Patient Tobacco Use Status: Former Tobacco user e-Cigarette/Vaping Use: Never Used service: No Current occupational status: employed Cognitive needs: No Hearing needs: No Vision needs: No Questionnaire PHQ-9 Over the last 2 weeks, how often have you been bothered by any of the following problems? 1. Little interest or pleasure in doing things: not at all 2. Feeling down, depressed, or hopeless: not at all 3. Trouble falling or staying asleep, or sleeping too much: not at all 4. Feeling tired or having little energy: not at all 5. Poor appetite or overeating: not at all 6. Feeling bad about yourself - or that you are a failure or have let yourself or your family down: not at all 7. Trouble concentrating on things, such as reading the newspaper or watching television: not at all 8. Moving or speaking so slowly that other people could have noticed. Or the opposite - being so fidgety or restless that you have been moving around a lot more than usual: not at all 9. Thoughts that you would be better off or of hurting yourself in some way: not at all Total score: 0 Depression Screening Interpretation: Negative Depression Screening Done: Yes 72240 - PHQ-9 Billing: Yes Source: Developed by Drs. Alphonso Matute, Karla Macario, Dougie Cha and colleagues, with an educational cristina from [employer]. Thrive Questionnaire Date Thrive assessed: 01/07/23 DEREK-7 AMB Questionnaire DEREK-7 Date DEREK - 7 assessed: 01/07/23 Source: Developed by Drs. Alphonso Matute, Karla Macario, Dougie Cha and colleagues, with an educational cristina from [employer]. Review of Systems Const Denies chills, Denies fatigue, Denies fever(s), Denies headache(s) and Denies weakness ENT Denies dizziness and Denies headache(s) Card Denies dyspnea Resp Denies cough, Denies dyspnea, Denies wheezing and Denies other (shortness of breath) Musc Denies numbness and Denies tingling Neuro Denies dizziness, Denies headache(s), Denies numbness, Denies tingling and Denies weakness Psych Denies anxiety and Denies depression Endo Denies fatigue Aller/Immun Denies wheezing Physical exam (Primary Care) Vital Signs: Last Vital Signs Pulse 89 03/20/23 08:37 Resp 13 03/20/23 08:37 BP 128/70 03/20/23 08:37 Pulse Ox 96 03/20/23 08:37 Oxygen Delivery Method Room Air 03/20/23 08:37 BMI result Body Mass Index 32.2 Tobacco/Smoking Status: Tobacco use Status Tobacco use date assessed 02/04/23 03/20/23 08:44 Patient Tobacco Use Status Former Tobacco user 03/20/23 08:44 e-Cigarette/Vaping Use Never Used 03/20/23 08:44 PHQ-9: PHQ-9 Score PHQ-9: Total score 0 03/20/23 08:50 Depression Screening Interpretation: Negative Thrive Assessment: Date of Thrive Assessment Date Thrive assessed 01/07/23 03/20/23 08:44 Const General: well developed; No acute distress Nutritional Appearance: well nourished Orientation/consciousness: patient oriented x3 HENMT Head: Yes normocephalic and Yes atraumatic Eyes General: appearance normal, both eyes and all related structures Pupils: Equal, round and reactive pupils present EOM: EOMs intact bilaterally Resp Effort & Inspection: normal respiratory effort Auscultation: clear to auscultation bilaterally Cardio Rate: regular rate Rhythm: regular rhythm Heart sounds: S1 normal heart sound present, S2 normal heart sound present, no gallops, no murmurs and no rubs Neuro General: patient oriented x3 and gait normal Cranial nerves: Yes Equal, round and reactive pupils present Psych Affect: normal affect Assessment and Plan Assessment & Plan (1) Elevated fasting glucose: Code(s): R73.01 - Impaired fasting glucose Plan: A1c?5.6%?is?at?top?normal?range?and?fasting?blood?sugar?117?and?123. Discussed?with?patient?that?this?is?likely?insulin?resistance?and?he?has?a?strong?family?history?of?diabetes. Encouraged?him?to?continue?working?on?diet?and?exercise?with?a?goal?of?weight?loss. Encouraged?reduction?in?sugars?and?starches?which?he?has?been?working?on. (2) Hyperlipidemia: Code(s): E78.5 - Hyperlipidemia, unspecified Plan: LDL?cholesterol?decreased?from?160-150.??Goal?is?less?than?130. Encouraged?him?to?continue?lifestyle?changes Will?recheck?again?in?3?months. We?discussed?that?if?he?isn't?able?to?continue?improvements?with?this,?we?should?consider?a?statin?medication. Orders: Orders Lipid Panel Today E78.5 - Hyperlipidemia, unspecified, Z00.00 - Encounter for general adult medical examination without abnormal findings Hemoglobin A1c Today R73.01 - Impaired fasting glucose Comprehensive Warner. Panel Fast Today R73.01 - Impaired fasting glucose, Z00.00 - Encounter for general adult medical examination without abnormal findings Coding Level of Care Code Est Pt Level 3 (95768) Diagnoses Elevated fasting glucose R73.01 Hyperlipidemia E78.5
[2023-03-20 08:37] VITALS: BP 128/70; PULSE 89; RESP 13; O2SAT 96; BMI 32.2
== END 2023-03-20 09:15 | disposition home or self-care (01) ==
PROVIDERS: PCP Family Medicine; Visit Provider Family Medicine
DX: R73.01 Impaired fasting glucose (principal); E78.5 Hyperlipidemia, unspecified
CPT/HCPCS: 99213

== ENCOUNTER 2023-05-28 09:36 | Outpatient (REF) | payer OTHER, SELFPAY ==
[2023-05-28 11:19] LABS: MANUAL DIFF FLAG NO
[2023-05-28 11:24] LABS: Basophils Percent Auto 0.3 % (0-2); Eosinophils Absolute Auto 0.4 X10*3/uL (0.0-0.4); Eosinophils Percent Auto 3.2 % (0-4); Hematocrit 49.4 % (42.0-52.0); Hemoglobin 16.6 g/dl (14.0-18.0); Imm Gran Abs Auto 0.04 X10*3/uL (0.00-0.03); Imm Gran Pct Auto 0.3 % (0.0-0.4); Lymphocytes Absolute Auto 2.2 X10*3/uL (1.2-4.9); Lymphocytes Percent Auto 18.6 % (20-40); Mean Corpuscular HGB Conc 33.6 g/dl (31.0-36.0); Mean Corpuscular Hemoglobin 30.6 pg (27.0-33.0); Mean Platelet Volume 10.2 fL (9.4-12.4); Monocytes Absolute Auto 0.8 X10*3/uL (0.1-1.2); Monocytes Percent Auto 6.2 % (2-11); Neutrophils Absolute Auto 8.6 x10*3/uL (2.0-8.3); Neutrophils Percent Auto 71.4 % (45-73); Platelet Count 299 X10*3/uL (160-400); Red Blood Count 5.43 X10*6/uL (4.60-5.80); Red Cell Distribution Width 12.1 % (11.0-16.0)
[2023-05-28 11:52] LABS: Erythrocyte Sedimentation Rate 3 MM/HR (0-15)
[2023-05-28 12:14] LABS: Estimated Average Glucose 108 mg/dL; Hemoglobin A1c % 5.4 % (<6.0)
[2023-05-28 12:54] LABS: Alanine Aminotransferase 27 U/L (0-40); Albumin Level 4.6 g/dL (3.5-5.0); Alkaline Phosphatase 86 U/L (39-117); Anion Gap 13 (12-20); Aspartate Amino Transferase 17 U/L (5-37); Bilirubin Total 0.5 mg/dL (0.0-1.0); Blood Urea Nitrogen 18 mg/dL (9-16); C Reactive Protein 0.22 mg/dL (< or = 0.50); Calcium 9.5 mg/dL (8.4-10.2); Carbon Dioxide 24 mmol/L (22-29); Chloride 104 mmol/L (96-108); Cholesterol 241 mg/dL (<200); Estimated Glomerular Filt Rate > 60; Glucose Fasting 120 mg/dL (60-99); Glucose Random 120 mg/dL (60-115); HDL Cholesterol 38 mg/dL (>40); LDL Cholesterol Calculated 160 mg/dL (<100); Potassium 4.2 mmol/L (3.3-5.1); Sodium 137 mmol/L (135-145); Total Protein 7.9 g/dL (6.5-8.0); Triglycerides 217 mg/dL (<150)
== END 2023-05-28 09:37 | disposition home or self-care (01) ==
LOC: HO.WFDLDS 09:36
PROVIDERS: Referring Provider Student in an Organized Health Care Education/Training Program; Visit Provider Family Medicine
DX: Z00.00 Encounter for general adult medical examination without abnormal findings (principal); R73.01 Impaired fasting glucose; L40.50 Arthropathic psoriasis, unspecified; E78.5 Hyperlipidemia, unspecified
CPT/HCPCS: 36415; 80053; 80061; 83036; 85025; 85652; 86140

== ENCOUNTER 2023-05-30 08:39 | Outpatient (AMB) | payer OTHER, SELFPAY ==
--- NOTE | 2023-05-30 08:49 | MHC.PC.OV ---
Vital Signs 05/30/23 08:51 Height 6 ft 3 in Weight 256 lb BMI 32.0 BP 120/72 Blood Pressure Location Lt brachial Position Sitting Pulse 83 Pulse Source Pulse Oximeter Pulse Oximetry (%) 97 Oxygen Delivery Method Room Air Intake Visit Reasons: f/u HLD Intake Note: Patient is here for follow up on HLD. Allergies adalimumab [From Humira(CF)] Allergy (Severe, Verified 05/30/23 08:54) Hives Tobacco use date assessed: 05/30/23 Dental Screening Dental Screen Date: 05/30/23 Did you have a dental visit in the last 12 months?: Yes Did you have a dental problem in the last 6 months where you did not have access to dental care?: No Was dental information given to patient?: Patient has dentist HPI f/u HLD HPI Details 52 y/o male presents to f/u hyperlipidemia. Labs were drawn 05/28/23. Reviewed labs with pt. Mildly elevated WBC at 12.0. Elevated fasting glucose of 120 and A1c 5.4%. Triglycerides 217. TC 241. LDL worsened from 150 to 160. HDL low at 38. [facility] Medical History Hyperlipidemia Deviated nasal septum Steatosis, liver Psoriasis PSA (psoriatic arthritis) Surgical History History of nasal surgery Family History Father Diabetes HTN (hypertension) Mother Diabetes Social History Household Members: Spouse Housing: House Alcohol intake: current Alcohol intake frequency: holidays/special occasions only Patient Tobacco Use Status: Former Tobacco user e-Cigarette/Vaping Use: Never Used service: No Current occupational status: employed Cognitive needs: No Hearing needs: No Vision needs: No Questionnaire PHQ-9 Over the last 2 weeks, how often have you been bothered by any of the following problems? 1. Little interest or pleasure in doing things: not at all 2. Feeling down, depressed, or hopeless: not at all 3. Trouble falling or staying asleep, or sleeping too much: not at all 4. Feeling tired or having little energy: not at all 5. Poor appetite or overeating: not at all 6. Feeling bad about yourself - or that you are a failure or have let yourself or your family down: not at all 7. Trouble concentrating on things, such as reading the newspaper or watching television: not at all 8. Moving or speaking so slowly that other people could have noticed. Or the opposite - being so fidgety or restless that you have been moving around a lot more than usual: not at all 9. Thoughts that you would be better off or of hurting yourself in some way: not at all Total score: 0 Source: Developed by Drs. Alphonso Matute, Karla Macario, Dougie Cha and colleagues, with an educational cristina from [employer]. Thrive Questionnaire Date Thrive assessed: 05/30/23 I am a: Patient What is your living situation today?: I have a steady place to live Within the past 12 months, did the food you bought not last and you didn't have the money to get more?: Never true Within the past 12 months, did you worry whether your food would run out before you got money to buy more?: Never true Do you have trouble paying for medicines?: No Do you have trouble getting transportation to medical appointments?: No Do you have trouble paying your heating and electricity bill?: No Do you have trouble taking care of your child, family member or friend?: No Do you have trouble with day-to-day activities such as bathing, preparing meals, shopping, managing finances, etc.?: No Are you currently unemployed and looking for a job?: No Are you interested in more education?: No THRIVE Score: 0 AUDIT C Alcohol Use Questionnaire (AUDIT-C) 1. How often do you have a drink containing alcohol?: 2-3 times a week 2. How many drinks containing alcohol do you have on a typical day when you are drinking?: 3 or 4 3. How often do you have six or more drinks on one occasion?: Weekly Total Score: 7 DEREK-7 AMB Questionnaire DEREK-7 Date DEREK - 7 assessed: 05/30/23 Feeling nervous, anxious, or on edge: 0 = Not at all Not being able to stop or control worryin = Not at all Worrying too much about different things: 0 = Not at all Trouble relaxin = Not at all Being so restless that it is hard to sit still: 0 = Not at all Becoming easily annoyed or irritable: 0 = Not at all Feeling afraid as if something awful might happen: 0 = Not at all Total DEREK-7 score (0-4 normal; 5-9 mild; 10-14 moderate; 15-21 severe): 0 Source: Developed by Drs. Alphonso Matute, Karla Macario, Dougie hCa and colleagues, with an educational cristina from [employer]. Review of Systems Const Denies chills, Denies fatigue, Denies fever(s), Denies headache(s) and Denies weakness ENT Denies dizziness, Denies headache(s) and Reports nasal congestion Card Denies dyspnea Resp Denies cough, Denies dyspnea, Denies wheezing and Denies other (shortness of breath) Musc Denies numbness and Denies tingling Neuro Denies dizziness, Denies headache(s), Denies numbness, Denies tingling and Denies weakness Psych Denies anxiety and Denies depression Endo Denies fatigue Aller/Immun Denies wheezing Physical exam (Primary Care) Vital Signs: Last Vital Signs Pulse 83 05/30/23 08:51 BP 120/72 05/30/23 08:51 Pulse Ox 97 05/30/23 08:51 Oxygen Delivery Method Room Air 05/30/23 08:51 BMI result Body Mass Index 32.0 Tobacco/Smoking Status: Tobacco use Status Tobacco use date assessed 05/30/23 05/30/23 08:55 Patient Tobacco Use Status Former Tobacco user 05/30/23 08:51 e-Cigarette/Vaping Use Never Used 05/30/23 08:51 PHQ-9: PHQ-9 Score PHQ-9: Total score 0 05/30/23 09:10 Thrive Assessment: Date of Thrive Assessment Date Thrive assessed 05/30/23 05/30/23 09:01 Const General: well developed; No acute distress Nutritional Appearance: well nourished Orientation/consciousness: patient oriented x3 HENMT Head: Yes normocephalic and Yes atraumatic Eyes General: appearance normal, both eyes and all related structures Pupils: Equal, round and reactive pupils present EOM: EOMs intact bilaterally Neck Other: Significant sinusitis with congested L maxillary sinus and decreased transilluminaition Resp Effort & Inspection: normal respiratory effort Neuro General: patient oriented x3 and gait normal Cranial nerves: Yes Equal, round and reactive pupils present Psych Affect: normal affect Assessment and Plan Assessment & Plan (1) Hyperlipidemia: Code(s): E78.5 - Hyperlipidemia, unspecified Plan: Lipids?still?significantly?elevated Start?atorvastatin He?will?follow-up?in?3?months?to?re-evaluate (2) Elevated fasting glucose: Code(s): R73.01 - Impaired fasting glucose Plan: Fasting?blood?sugars?still?high A1c?is?within?normal?limits Encouraged?diet?lower?in?sugars?and?starches Encouraged?exercise?and?weight?loss (3) Sinusitis: Code(s): J32.9 - Chronic sinusitis, unspecified Plan: Significant?sinusitis?with?congested?left?maxillary?sinus?and?decreased?transillumination No?fever?but?did?have?mildly?elevated?white?blood?cell?count?on?recent?lab No?pain No?blood?in?nasal?chamber Likely?significant?allergic?sinusitis?and?he?will?continue?Flonase?and?a?nasal?antihistamine?OTC If?not?improving,?he?can?take?Augmentin but?otherwise?he?will?not?pick?this?up. Orders: Orders Lipid Panel Today E78.5 - Hyperlipidemia, unspecified, Z00.00 - Encounter for general adult medical examination without abnormal findings Basic Metabolic Panel Fasting Today E78.5 - Hyperlipidemia, unspecified Medications: New atorvastatin 20 mg PO BEDTIME 90 days 90 tabs 1RF amoxicillin-pot clavulanate 500-125 mg (Augmentin) 1 tab PO Q12H 20 tabs 0RF 10 days Coding Level of Care Code Est Pt Level 4 (42428) Diagnoses Hyperlipidemia E78.5 Elevated fasting glucose R73.01 Sinusitis J32.9
[2023-05-30 08:51] VITALS: BP 120/72; PULSE 83; O2SAT 97; BMI 32.0
== END 2023-05-30 09:27 | disposition home or self-care (01) ==
PROVIDERS: PCP Family Medicine; Visit Provider Family Medicine
DX: E78.5 Hyperlipidemia, unspecified (principal); R73.01 Impaired fasting glucose; J32.9 Chronic sinusitis, unspecified
CPT/HCPCS: 99214

== ENCOUNTER 2023-06-26 07:49 | Day surgery (SDC) | payer OTHER, SELFPAY ==
[2023-06-24 15:07] VITALS: BMI 32.0
--- NOTE | 2023-06-25 10:12 | HO.ANESPROP2 ---
Documented by User: Tanika Brody NP 06/25/23 10:13 HPI - Anesthesia Eval Consult details Narrative: 52yo M for Colonoscopy PMFSH Active Problems Active Problems: All Active Problems (Updated 05/30/23 @ 09:23 by Tahir Clemens) Rhinitis (Acute) Immunization counseling (Acute) Hyperlipidemia (Acute) Elevated fasting glucose (Acute) Screening for colon cancer (Acute) Screening for prostate cancer (Acute) Adult general medical exam (Acute) Anxiety (Acute) Laboratory exam ordered as part of routine general medical examination (Acute) Stye (Acute) Urticaria (Acute) Allergic dermatitis (Acute) Psoriasis (Acute) Viral illness (Acute) PSA (psoriatic arthritis) (Acute) Past Medical History Medical History Hyperlipidemia Deviated nasal septum Steatosis, liver Psoriasis PSA (psoriatic arthritis) Family History Family History Father Diabetes HTN (hypertension) Mother Diabetes Surgical History Surgical History History of nasal surgery Social History Social History Household Members: Spouse Housing: House Alcohol intake: current Alcohol intake frequency: holidays/special occasions only Patient Tobacco Use Status: Former Tobacco user e-Cigarette/Vaping Use: Never Used Use of substances other than those prescribed or required for medical reasons: No Are you DNR?: No Advance Directives: No Advance Directives Information Provided: Yes service: No Current occupational status: employed Cognitive needs: No Hearing needs: No Vision needs: No Meds Allergies Allergy/AdvReac Type Severity Reaction Status Date / Time adalimumab [From Humira(CF)] Allergy Severe Anaphylaxis Verified 06/26/23 08:14 Exam Height,Weight and Vital Signs: Height 6 ft 3 in Weight 116.12 kg Pertinent Lab Results Pertinent Lab Results: Laboratory Tests 05/28/23 07:25 WBC 12.0 H Hgb 16.6 Hct 49.4 Plt Count 299 Sodium 137 Potassium 4.2 Chloride 104 Carbon Dioxide 24 BUN 18 H Creatinine 1.02 Assessment and Plan Assessment Anesthesia Assessment: Chart Reviewed Documented by User: Cara Knight MD 06/26/23 08:43 PMFSH Active Problems Active Problems: All Active Problems (Updated 06/26/23 @ 08:35 by Cara Knight MD) Rhinitis (Acute) Immunization counseling (Acute) Hyperlipidemia (Acute) Elevated fasting glucose (Acute) Screening for colon cancer (Acute) Screening for prostate cancer (Acute) Adult general medical exam (Acute) Anxiety (Acute) Laboratory exam ordered as part of routine general medical examination (Acute) Urticaria (Acute) Allergic dermatitis (Acute) Psoriasis (Acute) Psoriatic Arthritis Stye Denies JEFFERY Past Medical History Medical History Hyperlipidemia Deviated nasal septum Steatosis, liver Psoriasis PSA (psoriatic arthritis) Family History Family History Father Diabetes HTN (hypertension) Mother Diabetes Family history of problems with anesthesia: No Surgical History Surgical History History of nasal surgery History of Problems with Anesthesia: No Social History Social History Household Members: Spouse Housing: House Alcohol intake: current Alcohol intake frequency: holidays/special occasions only Patient Tobacco Use Status: Former Tobacco user e-Cigarette/Vaping Use: Never Used Use of substances other than those prescribed or required for medical reasons: No Are you DNR?: No Advance Directives: No Advance Directives Information Provided: Yes service: No Current occupational status: employed Cognitive needs: No Hearing needs: No Vision needs: No Meds Allergies Allergy/AdvReac Type Severity Reaction Status Date / Time adalimumab [From Humira(CF)] Allergy Severe Anaphylaxis Verified 06/26/23 08:14 Exam Height,Weight and Vital Signs: Height 6 ft 3 in Weight 116.12 kg Vital Signs Temp Pulse Resp BP Pulse Ox O2 Del Method 06/26/23 08:12 98.4 F 72 16 142/91 H 94 Room Air Pertinent Lab Results Pertinent Lab Results: Laboratory Tests 05/28/23 07:25 WBC 12.0 H Hgb 16.6 Hct 49.4 Plt Count 299 Sodium 137 Potassium 4.2 Chloride 104 Carbon Dioxide 24 BUN 18 H Creatinine 1.02 Airway Mallampati Class: III TM Dist: >3cm Neck ROM: Full Loose/Missing/Broken Teeth: No (Denies broken, loose, missing teeth) Heart: RRR Lungs: CTAB Assessment and Plan Assessment Anesthesia Assessment: Anesthesia Plan Discussed and Chart Reviewed Final Anesthetic Review Family History of Problems with Anesthesia: No History of Problems with Anesthesia: No NPO: Yes ASA Class: II Final Preanesthetic Review: No Changes in Pt Med Stat, Meds/Allgs Chart Reviewed, Consent Obtained/Reviewed and Anes Risks/Benef Reviewed Patient Risk: Intermediate Procedure Risk: Low Assessment/Block/Sedation in SS: Assess/Block/Sedation-SS Anesthetic Plan Anesthetic Plan: MAC: and TIVA Disposition: Standard PACU
[2023-06-26 07:59] VITALS: BMI 33.0
[2023-06-26 08:12] VITALS: BP 142/91; PULSE 72; RESP 16; TEMP 36.9; O2SAT 94
--- NOTE | 2023-06-26 08:14 | MHC.SHP ---
Pre-Procedural Eval Section A - 24 Hr Update-Section A only Date of Service: 06/26/23 Section B - Complete if H&P > 30 days Chief Complaint: screening Relevant Family History (Specify if Yes): No Relevant Social History: None Present Medications: see Short Stay Collaborative assessment Medical History: Significant History (Hyperlipidemia Deviated nasal septum Steatosis, liver Psoriasis PSA (psoriatic arthritis)) History of Previous Operations: Relevant previous surgery/procedure and date(s) (History of nasal surgery) Allergies: Allergies Allergy/AdvReac Type Severity Reaction Status Date / Time adalimumab [From Humira(CF)] Allergy Severe Hives Verified 05/30/23 08:54 Review of Systems Sugical H&P ROS: Negative: Constitution, Cardiovascular, Respiratory, Neurological, Psychiatric, Hem-Onc, Allergic/Immunologic, Gastrointestinal, Genitourinary, Musculoskeletal, Integumentary, Endocrine and Eyes/Ears/Nose/Throat Exam Surgical H&P Exam: Normal: HEENT, Normal: Heart, Normal: Lungs, Normal: Extremities, Normal: Abdomen, Normal: Skin and Normal: Neurological Plan Diagnosis/Plan: Unchanged I have reviewed the history and physical and performed a pertinent physical examination on my patient. No changes have occurred unless specified. Time Spent With Patient Time: Total time managing care of this patient today ____ minutes.
[2023-06-26] MEDS: Lactated Ringers 1,000 ML 100 ML IVCONT (08:21)
--- NOTE | 2023-06-26 09:46 | W.PM.OPN ---
Operative Note Operative Note Date of Service: 06/26/23 Narrative: Operative Information Procedure Description: Colonoscopy Indication: screening Anesthesia: MAC COLONOSCOPY Instrument: Olympus variable stiffness ADULT scope 190L Colonoscopy Monitoring: Vital signs and clinical assessment, continuous EKG monitoring, Pulse oximetry, Carbon Dioxide monitoring and blood pressure monitoring were done throughout the procedure. Colon withdrawal time was 10 minutes. Procedure: The patient was placed in the left lateral decubitis position and pre-procedure medications were administered. After a digital rectal examination of the ano-rectum, the video colonoscope was inserted into the rectum and advanced through the colon to the cecum/TI. The colonoscope was slowly withdrawn in a retrograde panoramic fashion and the colon mucosa was carefully examined including a retroflexed view of the rectum. Findings and interventions are described below. Procedure Difficulty: easy Findings: Terminal Ileum-normal Cecum:normal Ascending Colon: normal Transverse Colon -normal Descending Colon: x 2 sessile polyps removed with cold snare 6-9 mm Sigmoid Colon: mild diverticulosis Rectum: Retroflexion with small internal hemorrhoids seen, grade I, x 4 sessile polyps 5-8 mm removed with cold snare Anorectum - normal Intervention: cold snare Colon preparation: [place] Bowel Preparation Scale Right colon; 2 Transverse colon: 2 Left colon; 2 (0 = Unprepared colon segment with mucosa not seen due to solid stool that cannot be cleared. 1 = Portion of mucosa of the colon segment seen, but other areas of the colon segment not well seen due to staining, residual stool and/or opaque liquid. 2 = Minor amount of residual staining, small fragments of stool and/or opaque liquid, but mucosa of colon segment seen well. 3 = Entire mucosa of colon segment seen well with no residual staining, small fragments of stool or opaque liquid) Impression and Post Procedure Diagnosis: diverticulosis colon polyps internal hemorrhoids Plan: High fiber diet leaflet Avoid straining at stool, epsom salts and sitz bath, anusol supps or cream Repeat Colonoscopy in 3-5 years due to polyps or earlier if clinically indicated Above findings were reviewed with the patient and relevant handouts were provided if indicated.
[2023-06-26 09:50] VITALS: BP 113/76; PULSE 87; RESP 16; TEMP 36.9; O2SAT 95
[2023-06-26 10:05] VITALS: BP 104/71; PULSE 70; RESP 18; TEMP 36.6; O2SAT 93
== END 2023-06-26 11:06 | disposition home or self-care (01) ==
PROVIDERS: PCP Family Medicine; Visit Provider Internal Medicine Gastroenterology
PROC: 0DJD8ZZ Inspection of Lower Intestinal Tract, Via Natural or Artificial Opening Endoscopic (ICD-10-PCS; CPT 45378; principal; 2023-06-26 09:30)
DX: Z12.11 Encounter for screening for malignant neoplasm of colon (principal); D12.4 Benign neoplasm of descending colon; K62.1 Rectal polyp; K57.30 Diverticulosis of large intestine without perforation or abscess without bleeding; K64.0 First degree hemorrhoids; Z88.8 Allergy status to other drugs, medicaments and biological substances
CPT/HCPCS: 45385; 88305; J2704

== ENCOUNTER → 2023-06-26 07:49 | Outpatient (BNV) | payer OTHER, SELFPAY | PROVIDERS: PCP Family Medicine; Visit Provider Internal Medicine Gastroenterology | DX: Z12.11 Encounter for screening for malignant neoplasm of colon (principal); D12.4 Benign neoplasm of descending colon; K57.30 Diverticulosis of large intestine without perforation or abscess without bleeding; K64.0 First degree hemorrhoids | CPT/HCPCS: 45385 ==

== ENCOUNTER 2023-08-06 07:36 | Outpatient (AMB) | payer OTHER, SELFPAY ==
[2023-08-06 07:50] VITALS: BP 130/76; PULSE 88; O2SAT 94; BMI 33.7
--- NOTE | 2023-08-06 07:50 | A.OFFVIS_ITS ---
Vital Signs 08/06/23 07:50 Height 6 ft 2 in Weight 262 lb 2.074 oz BMI 33.7 BP 130/76 Blood Pressure Location Rt brachial Position Sitting Pulse 88 Pulse Source Pulse Oximeter Pulse Oximetry (%) 94 Oxygen Delivery Method Room Air Intake Visit Reasons: PsA Intake Note: Patient last seen 02/05/23 presents today for follow up and test results. Denies new or increased pain. Has new insurance and is figuring out new specialty pharmacy. [employer] Professional Required: No Accompanied by: Self / Same As Patient Allergies adalimumab [From Humira(CF)] Allergy (Severe, Verified 08/06/23 07:51) Anaphylaxis Medication List - Last Reconciled 08/06/23 by Ellis Mason MD atorvastatin 20 mg PO BEDTIME 90 days Enbrel SureClick (etanercept) 50 mg subcut QWEEK NS HPI Comments Details: This is a 52-year-old male with psoriatic arthritis who presents for follow-up. Doing well overall. Compliant with Enbrel weekly. Denies any joint pain or sw elling. Sometimes feels some joint stiffness that is alleviated with Aleve. He also takes [id number] turmeric but he believes he only takes 300 mg daily, Denies any psoriasis skin lesions. Continues to have psoriatic nails in the left hand. those have not improved or progressed. Recently started on atorvastatin for dyslipidemia by his PCP. Had a colonoscopy which showed 2 polyps and due for repeat colonoscopy in 3 years. [facility] Medical History Hyperlipidemia Deviated nasal septum Steatosis, liver Psoriasis PSA (psoriatic arthritis) Surgical History History of nasal surgery Family History Father Diabetes HTN (hypertension) Mother Diabetes Social History Household Members: Spouse Housing: House Alcohol intake: current Alcohol intake frequency: holidays/special occasions only Patient Tobacco Use Status: Former Tobacco user e-Cigarette/Vaping Use: Never Used service: No Current occupational status: employed Cognitive needs: No Hearing needs: No Vision needs: No Review of Systems Musc Denies arthralgias and Reports stiffness Skin/Breast Details: Nail psoriasis Physical Exam Vital Signs: Last Vital Signs Pulse 88 08/06/23 07:50 BP 130/76 08/06/23 07:50 Pulse Ox 94 08/06/23 07:50 Oxygen Delivery Method Room Air 08/06/23 07:50 BMI result Body Mass Index 33.7 Const General: cooperative and healthy appearing Nutritional Appearance: obese Orientation/consciousness: patient oriented x3 Limitations: no limitations HEENT Head: Yes normocephalic and Yes atraumatic Resp Effort & Inspection: normal respiratory effort and able to speak in complete sentences GI Inspection: No distended Palpation (GI): Soft to palpation and nontender Neuro General: patient oriented x3 Extrem Other: Minimal osteoarthritic changes of both hands. No active synovitis Left hand nail onycholysis Assessment & Plan Assessment & Plan (1) PSA (psoriatic arthritis): Comment: axial & peripheral involvement Methotrexate: Treated for 13 years. Stopped December 2021 due to increased LFTs. Humira: 02/2022 -March 2021. Stopped due to diffuse rash and hives Enbrel: April 2021 to present effective Code(s): L40.50 - Arthropathic psoriasis, unspecified Category: Medical Plan: Psoriatic arthritis appears well controlled on Enbrel. Patient is tolerating Enbrel without issue. Joint pain is well controlled. No synovitis on exam. He continues to have some nail onycholysis on his left hand. We did discuss potentially switching his Enbrel to Taltz. However he states that his nail onycholysis is not bothersome. Recent blood work unremarkable. Continue Enbrel once weekly Patient states that he gets some joint stiffness, no swelling or significant pain. Usually goes away with Aleve. 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 Panel 6 Months L40.50 - Arthropathic psoriasis, unspecified Erythrocyte Sedimentation Rate 6 Months L40.50 - Arthropathic psoriasis, unspecified Hepatitis A,B,C Profile 6 Months Z11.59 - Encounter for screening for other viral diseases Complete Blood Count Auto Diff 6 Months L40.50 - Arthropathic psoriasis, unspecified C Reactive Protein 6 Months L40.50 - Arthropathic psoriasis, unspecified T Spot TB 6 Months Z11.7 - Encounter for testing for latent tuberculosis infection HLA B27 6 Months M45.9 - Ankylosing spondylitis of unspecified sites in spine Coding Level of Care Code Est Pt Level 4 (03995) Diagnoses PSA (psoriatic arthritis) L40.50 High risk medication use Z79.899
== END 2023-08-06 08:09 | disposition home or self-care (01) ==
PROVIDERS: PCP Family Medicine; Visit Provider Student in an Organized Health Care Education/Training Program
DX: L40.50 Arthropathic psoriasis, unspecified (principal); Z79.899 Other long term (current) drug therapy
CPT/HCPCS: 99214

== ENCOUNTER → 2023-08-06 07:36 | Outpatient (BNVA) | payer OTHER, SELFPAY | PROVIDERS: PCP Family Medicine; Visit Provider Student in an Organized Health Care Education/Training Program ==

== ENCOUNTER 2023-08-27 07:33 | Outpatient (REF) | payer OTHER, SELFPAY ==
[2023-08-27 12:37] LABS: Anion Gap 12 (12-20); Blood Urea Nitrogen 17 mg/dL (9-16); Calcium 9.4 mg/dL (8.4-10.2); Carbon Dioxide 23 mmol/L (22-29); Chloride 108 mmol/L (96-108); Cholesterol 171 mg/dL (<200); Estimated Glomerular Filt Rate > 60; Glucose Fasting 115 mg/dL (60-99); HDL Cholesterol 49 mg/dL (>40); LDL Cholesterol Calculated 105 mg/dL (<100); Potassium 4.2 mmol/L (3.3-5.1); Sodium 139 mmol/L (135-145); Triglycerides 88 mg/dL (<150)
== END 2023-08-27 07:34 | disposition home or self-care (01) ==
LOC: HO.WFDLDS 07:33
PROVIDERS: Visit Provider Family Medicine
DX: Z00.00 Encounter for general adult medical examination without abnormal findings (principal); E78.5 Hyperlipidemia, unspecified
CPT/HCPCS: 36415; 80048; 80061

== ENCOUNTER 2023-08-29 08:21 | Outpatient (AMB) | payer OTHER, SELFPAY ==
[2023-08-29 08:34] VITALS: BP 120/76; PULSE 81; O2SAT 94; BMI 33.8
--- NOTE | 2023-08-29 08:34 | A.OFFPC_ITS ---
Vital Signs 08/29/23 08:34 Height 6 ft 2 in Weight 263 lb BMI 33.8 BP 120/76 Blood Pressure Location Lt brachial Position Sitting Pulse 81 Pulse Source Pulse Oximeter Pulse Oximetry (%) 94 Intake Visit Reasons: f/u HLD Intake Note: Patient is here for follow up on cholesterol. Allergies adalimumab [From Humira(CF)] Allergy (Severe, Verified 08/29/23 08:36) Anaphylaxis Medication List - Last Reconciled 08/29/23 by Bbo Marino MD atorvastatin 20 mg PO BEDTIME 90 days Enbrel SureClick (etanercept) 50 mg subcut QWEEK NS Tobacco use date assessed: 08/29/23 Dental Screening Dental Screen Date: 05/30/23 HPI f/u HLD HPI Details 52 y/o male presents to f/u HLD and vargas mary. Labs were drawn 08/27/23. Reviewed labs with pt. Triglycerides 88. TC 171. LDL improved from 160 to 105. HDL 49. PFSH Medical History Hyperlipidemia Deviated nasal septum Steatosis, liver Psoriasis PSA (psoriatic arthritis) Surgical History History of nasal surgery Family History Father Diabetes HTN (hypertension) Mother Diabetes Social History Household Members: Spouse Housing: House Alcohol intake: current Alcohol intake frequency: holidays/special occasions only Patient Tobacco Use Status: Former Tobacco user e-Cigarette/Vaping Use: Never Used service: No Current occupational status: employed Cognitive needs: No Hearing needs: No Vision needs: No Questionnaire Thrive Questionnaire Date Thrive assessed: 05/30/23 DEREK-7 AMB Questionnaire DEREK-7 Date DEREK - 7 assessed: 05/30/23 Source: Developed by Drs. Alphonso Matute, Karla Macario, Dougie Cha and colleagues, with an educational cristina from [employer]. Review of Systems Const Denies chills, Denies fatigue, Denies fever(s), Denies headache(s) and Denies weakness ENT Denies dizziness and Denies headache(s) Card Denies chest pain, Denies lightheadedness, Denies dyspnea and Denies other (Palpitations) Resp Denies cough, Denies dyspnea, Denies wheezing and Denies other ( shortness of breath) Musc Denies numbness and Denies tingling Neuro Denies dizziness, Denies headache(s), Denies numbness, Denies tingling, Denies paresthesias and Denies weakness Psych Denies anxiety and Denies depression Endo Denies fatigue Aller/Immun Denies wheezing Physical exam (Primary Care) Vital Signs: Last Vital Signs Pulse 81 08/29/23 08:34 BP 120/76 08/29/23 08:34 Pulse Ox 94 08/29/23 08:34 BMI result Body Mass Index 33.8 Tobacco/Smoking Status: Tobacco use Status Tobacco use date assessed 08/29/23 08/29/23 08:42 Patient Tobacco Use Status Former Tobacco user 08/29/23 08:42 e-Cigarette/Vaping Use Never Used 08/29/23 08:42 Thrive Assessment: Date of Thrive Assessment Date Thrive assessed 05/30/23 08/29/23 08:42 Const General: no acute distress and well developed Nutritional Appearance: well nourished Orientation/consciousness: patient oriented x3 HENMT Head: Yes normocephalic and Yes atraumatic Eyes General: appearance normal, both eyes and all related structures Pupils: Equal, round and reactive pupils present EOM: EOMs intact bilaterally Resp Effort & Inspection: normal respiratory effort Auscultation: clear to auscultation bilaterally Cardio Rate: regular rate Rhythm: regular rhythm Heart sounds: S1 normal heart sound present, S2 normal heart sound present, no gallops, no murmurs and no rubs Neuro General: patient oriented x3 and gait normal Cranial nerves: Yes Equal, round and reactive pupils present Psych Affect: normal affect Assessment and Plan Assessment & Plan (1) Hyperlipidemia: Code(s): E78.5 - Hyperlipidemia, unspecified Plan: Patient?was?started?on?atorvastatin?20?mg?daily?at?last?visit Lipids?now?significantly?improved?and?LDL?choles terol?105?is?only?slightly?above?goal. His?other?lipid?levels?are?fine Encouraged?ongoing?diet?low?in?saturated?fats?and?cholesterol Encouraged?weight?loss?and?exercise Orders: Orders Comprehensive [place]. Panel Fast Today Z00.00 - Encounter for general adult medical examination without abnormal findings Microalbumin, Random (w Creat) Today I10 - Essential (primary) hypertension Prostate Specific Antigen Scr Today Z12.5 - Encounter for screening for malignant neoplasm of prostate TSH reflex Free T4 Today Z00.00 - Encounter for general adult medical examination without abnormal findings Lipid Panel Today Z00.00 - Encounter for general adult medical examination without abnormal findings UA and rflx microscopic Today Z00.00 - Encounter for general adult medical examination without abnormal findings Coding Level of Care Code Est Pt Level 3 (01969) Diagnoses Hyperlipidemia E78.5
== END 2023-08-29 09:25 | disposition home or self-care (01) ==
PROVIDERS: PCP Family Medicine; Visit Provider Family Medicine
DX: E78.5 Hyperlipidemia, unspecified (principal)
CPT/HCPCS: 99213

== ENCOUNTER 2024-02-03 07:55 | Outpatient (REF) | payer OTHER, SELFPAY ==
[2024-02-03 11:18] LABS: MANUAL DIFF FLAG NO
[2024-02-03 11:24] LABS: Basophils Percent Auto 0.4 % (0-2); Eosinophils Absolute Auto 0.4 X10*3/uL (0.0-0.4); Eosinophils Percent Auto 5.2 % (0-4); Hematocrit 46.8 % (42.0-52.0); Imm Gran Abs Auto 0.03 X10*3/uL (0.00-0.03); Imm Gran Pct Auto 0.4 % (0.0-0.4); Lymphocytes Absolute Auto 1.8 X10*3/uL (1.2-4.9); Lymphocytes Percent Auto 25.7 % (20-40); Mean Corpuscular HGB Conc 34.2 g/dl (31.0-36.0); Mean Corpuscular Hemoglobin 30.8 pg (27.0-33.0); Mean Corpuscular Volume 90.2 fL (80.0-98.0); Mean Platelet Volume 10.4 fL (9.4-12.4); Monocytes Absolute Auto 0.6 X10*3/uL (0.1-1.2); Monocytes Percent Auto 7.8 % (2-11); Neutrophils Absolute Auto 4.3 x10*3/uL (2.0-8.3); Neutrophils Percent Auto 60.5 % (45-73); Platelet Count 238 X10*3/uL (160-400); Red Blood Count 5.19 X10*6/uL (4.60-5.80); Red Cell Distribution Width 11.8 % (11.0-16.0); White Blood Count 7.2 X10*3/uL (4.8-10.8)
[2024-02-03 12:00] LABS: Erythrocyte Sedimentation Rate 2 MM/HR (0-15)
[2024-02-03 12:03] LABS: Alanine Aminotransferase 48 U/L (0-40); Albumin Level 4.6 g/dL (3.5-5.0); Alkaline Phosphatase 90 U/L (39-117); Anion Gap 14 (12-20); Aspartate Amino Transferase 27 U/L (5-37); Bilirubin Total 0.7 mg/dL (0.0-1.0); Blood Urea Nitrogen 16 mg/dL (9-16); C Reactive Protein 0.17 mg/dL (< or = 0.50); Calcium 9.2 mg/dL (8.4-10.2); Carbon Dioxide 24 mmol/L (22-29); Chloride 106 mmol/L (96-108); Estimated Glomerular Filt Rate > 60; Glucose Random 113 mg/dL (60-115); Potassium 3.6 mmol/L (3.3-5.1); Sodium 140 mmol/L (135-145); Total Protein 7.4 g/dL (6.5-8.0)
[2024-02-03 12:10] LABS: HBc Num1 0.08 S/CO (0.00-0.79); Hepatitis A Antibody IgM 0.21 Index (0-0.79); Hepatitis B Core Antibody Nonreactive (Nonreactive); ~Hepatitis A Antibody IgM Nonreactive (Nonreactive); ~Hepatitis B Surface Antibody NONREACTIVE (Nonreactive); ~Hepatitis C Antibody Nonreactive (Nonreactive)
[2024-02-04 08:02] LABS: HBsAGNum1 0.26 S/CO (0.00-0.99); Hepatitis B Surface Antigen Negative (Negative)
[2024-02-06 05:34] LABS: TS Negative Control Passed; TS Panel A 2; TS Panel B 0; TS Positive Control Passed; TSpotTB Negative (Negative)
== END 2024-02-03 07:56 | disposition home or self-care (01) ==
LOC: HO.WFDLDS 07:55
PROVIDERS: Visit Provider Student in an Organized Health Care Education/Training Program
DX: L40.50 Arthropathic psoriasis, unspecified (principal); Z11.59 Encounter for screening for other viral diseases; Z11.7 Encounter for testing for latent tuberculosis infection; M45.9 Ankylosing spondylitis of unspecified sites in spine
CPT/HCPCS: 36415; 80053; 85025; 85652; 86140; 86481; 86704; 86706; 86709; 86803; 86812; 87340

== ENCOUNTER 2024-02-04 07:37 | Outpatient (AMB) | payer OTHER, SELFPAY ==
--- NOTE | 2024-02-04 07:38 | MHC.OFFVIS ---
Vital Signs 02/04/24 07:41 Height 6 ft 2 in Weight 269 lb 6.478 oz BMI 34.6 BP 115/70 Blood Pressure Location Lt brachial Position Sitting Respiration 18 Pulse 91 Pulse Source Pulse Oximeter Pulse Oximetry (%) 94 Oxygen Delivery Method Room Air Intake Visit Reasons: PsA/cm Intake Note: Patient presents for PsA. Allergies adalimumab [From Humira(CF)] Allergy (Severe, Verified 02/04/24 07:41) Anaphylaxis Medication List - Last Reconciled 02/04/24 by Ellis Mason MD atorvastatin 20 mg PO BEDTIME 90 days Enbrel SureClick (etanercept) 50 mg subcut QWEEK NS HPI Comments Details: This is a 53-year-old male with psoriatic arthritis who presents for follow-up. Doing well overall. Compliant with Enbrel weekly. Denies any joint pain or swelling. Continues to have psoriatic nails in the left hand. those have not improved or progressed. Has subtle psoriasis patches on his left bass that are intermittently itchy. He applies lotion on them. [facility] Medical History (Updated 02/04/24 @ 07:56 by Ellis Mason MD) Hyperlipidemia Deviated nasal septum Steatosis, liver Psoriasis PSA (psoriatic arthritis) Surgical History History of nasal surgery Family History Father Diabetes HTN (hypertension) Mother Diabetes Social History Household Members: Spouse Housing: House Alcohol intake: current Alcohol intake frequency: holidays/special occasions only Patient Tobacco Use Status: Former Tobacco user e-Cigarette/Vaping Use: Never Used service: No Current occupational status: employed Cognitive needs: No Hearing needs: No Vision needs: No Review of Systems Musc Denies arthralgias, Denies joint swelling and Denies stiffness Skin/Breast Details: Nail psoriasis Reports nail changes and Reports rash Physical Exam Vital Signs: Last Vital Signs Pulse 91 02/04/24 07:41 Resp 18 02/04/24 07:41 BP 115/70 02/04/24 07:41 Pulse Ox 94 02/04/24 07:41 Oxygen Delivery Method Room Air 02/04/24 07:41 BMI result Body Mass Index 34.6 Const General: cooperative and healthy appearing Nutritional Appearance: obese Orientation/consciousness: patient oriented x3 Limitations: no limitations HEENT Head: Yes normocephalic and Yes atraumatic Resp Effort & Inspection: normal respiratory effort and able to speak in complete sentences GI Inspection: No distended Palpation (GI): Soft to palpation and nontender Skin Other: Mild e erythematous patch on anterior aspect of left bass Neuro General: patient oriented x3 Extrem Other: Minimal osteoarthritic changes of both hands. No active synovitis Left hand nail onycholysis Assessment & Plan Assessment & Plan (1) PSA (psoriatic arthritis): Comment: axial & peripheral involvement Methotrexate: Treated for 13 years. Stopped December 2021 due to increased LFTs. Humira: 02/2022 -March 2021. Stopped due to diffuse rash and hives Enbrel: April 2021 to present effective Code(s): L40.50 - Arthropathic psoriasis, unspecified Category: Medical Plan: Psoriatic arthritis appears well controlled on Enbrel. Patient is tolerating Enbrel without issue. Joint pain is well controlled. No synovitis on exam. He continues to have some nail onycholysis on his left hand. We did discuss potentially switching his Enbrel to Taltz. However he states that his nail onycholysis is not bothersome. Continue Enbrel 50 mg once weekly Blood work before next visit in 12 months (2) High risk medication use: Code(s): Z79.899 - Other nursing home (current) drug therapy Category: Medical Plan: Side effects of Enbrel were discussed with the patient in detail including increased risk of infection, demyelinating disease, reactivation of latent TB, possible increased risk of solid and skin tumors. Patient fully aware. Advised patient to seek medical care DAVID if patient has an infection and advised patient to stop the medication until the infection is resolved. (3) Steatosis, liver: Code(s): K76.0 - Fatty (change of) liver, not elsewhere classified Category: Medical Plan: Fluctuating transaminitis. Slightly increased beer consumption recently. Discussed with patient that psoriasis is associated with fatty liver and advised to cut down alcohol consumption as much as possible (4) Immunization counseling: Code(s): Z71.85 - Encounter for immunization safety counseling Category: Medical Plan: Patient will get the flu vaccine this season. Advised patient not to skip Enbrel Plan I spent 26 minutes reviewing patient's chart, evaluating patient, ordering diagnostic workup, counseling patient and documenting in the chart Orders: Orders Comprehensive Met. Panel 1 Year L40.50 - Arthropathic psoriasis, unspecified, Z79.899 - Other nursing home (current) drug therapy C Reactive Protein 1 Year L40.50 - Arthropathic psoriasis, unspecified, Z79.899 - Other keno terminal operator (current) drug therapy Hepatitis A,B,C Profile 1 Year Z11.59 - Encounter for screening for other viral diseases Complete Blood Count Auto Diff 1 Year L40.50 - Arthropathic psoriasis, unspecified, Z79.899 - Other nursing home (current) drug therapy Erythrocyte Sedimentation Rate 1 Year L40.50 - Arthropathic psoriasis, unspecified, Z79.899 - Other keno terminal operator (current) drug therapy T Spot TB 1 Year Z11.7 - Encounter for testing for latent tuberculosis infection Coding Level of Care Code Est Pt Level 4 (76779) Complex EM visit Add On G2211 Diagnoses PSA (psoriatic arthritis) L40.50 High risk medication use Z79.899 Steatosis, liver K76.0 Immunization counseling Z71.85
[2024-02-04 07:41] VITALS: BP 115/70; PULSE 91; RESP 18; O2SAT 94; BMI 34.6
== END 2024-02-04 08:00 | disposition home or self-care (01) ==
PROVIDERS: PCP Family Medicine; Visit Provider Student in an Organized Health Care Education/Training Program
DX: L40.50 Arthropathic psoriasis, unspecified (principal); Z79.899 Other long term (current) drug therapy; K76.0 Fatty (change of) liver, not elsewhere classified; Z71.85 Encounter for immunization safety counseling
CPT/HCPCS: 99214; G2211

== ENCOUNTER 2024-07-13 08:04 | Outpatient (REF) | payer OTHER, SELFPAY ==
[2024-07-13 11:36] LABS: Appearance Urine Clear; Color Urine Yellow; Glucose Urine UA Negative (Negative); Leukocyte Esterase Urine Negative (Negative); Nitrite Urine Negative (Negative); PH 5.5 (5.0-9.0); Urine Blood Negative (Negative); Urine Ketones Trace mg/dL (Negative); Urine Protein Negative (Neg-Trace)
[2024-07-13 11:43] LABS: Estimated Average Glucose 111 mg/dL; Hemoglobin A1C 142.1525 umol/L; Hemoglobin A1c % 5.5 % (<6.0); Total Hemoglobin (HGBA1C) 3921.5744 umol/L
[2024-07-13 11:58] LABS: Alanine Aminotransferase 35 U/L (0-40); Albumin Level 4.6 g/dL (3.5-5.0); Alkaline Phosphatase 99 U/L (39-117); Anion Gap 13 (12-20); Aspartate Amino Transferase 26 U/L (5-37); Bilirubin Total 0.5 mg/dL (0.0-1.0); Blood Urea Nitrogen 14 mg/dL (9-16); Calcium 9.4 mg/dL (8.4-10.2); Carbon Dioxide 24 mmol/L (22-29); Chloride 106 mmol/L (96-108); Cholesterol 168 mg/dL (<200); Estimated Glomerular Filt Rate > 60; Glucose Fasting 129 mg/dL (60-99); HDL Cholesterol 45 mg/dL (>40); LDL Cholesterol Calculated 99 mg/dL (<100); Potassium 4.1 mmol/L (3.3-5.1); Sodium 139 mmol/L (135-145); Total Protein 7.2 g/dL (6.5-8.0); Triglycerides 121 mg/dL (<150)
[2024-07-13 12:15] LABS: Prostate Specific Antigen Scr 0.34 ng/mL (<0.05-4.0)
[2024-07-13 12:23] LABS: TSH reflex Free T4 0.55 uIU/mL (0.32-4.0)
[2024-07-13 12:32] LABS: Creatinine Urine 216.38 mg/dL
== END 2024-07-13 08:05 | disposition home or self-care (01) ==
LOC: HO.WFDLDS 08:04
PROVIDERS: Visit Provider Family Medicine
DX: Z00.00 Encounter for general adult medical examination without abnormal findings (principal); I10 Essential (primary) hypertension; Z12.5 Encounter for screening for malignant neoplasm of prostate; R73.01 Impaired fasting glucose
CPT/HCPCS: 36415; 80053; 80061; 81003; 82043; 82570; 83036; 84153; 84443

== ENCOUNTER 2024-07-15 08:52 | Outpatient (AMB) | payer OTHER, SELFPAY ==
--- NOTE | 2024-07-15 08:58 | MHC.PC.OV ---
Vital Signs 07/15/24 09:02 Height 6 ft 2 in Weight 259 lb 8 oz BMI 33.3 BP 120/76 Blood Pressure Location Rt brachial Position Sitting Respiration 14 Pulse 97 Pulse Source Pulse Oximeter Temp 98.0 F Temp Source Oral Pulse Oximetry (%) 96 Oxygen Delivery Method Room Air Intake Visit Reasons: CPE with f/u labs and health maint. Intake Note: patient is scheduled for cpe Nuclear Medicine Physician Required: No Allergies adalimumab [From Humira(CF)] Allergy (Severe, Verified 07/15/24 09:01) Anaphylaxis Medication List - Last Reconciled 07/15/24 by Bob Marino MD atorvastatin 20 mg PO BEDTIME 90 days Enbrel SureClick (etanercept) 50 mg subcut QWEEK NS Tobacco use date assessed: 07/15/24 Dental Screening Dental Screen Date: 07/15/24 Did you have a dental visit in the last 12 months?: Yes Did you have a dental problem in the last 6 months where you did not have access to dental care?: Yes Was dental information given to patient?: No HPI CPE with f/u labs and health maint. HPI Details 53 y/o male presents for a CPE with f/u labs and health maintenance. Labs drawn 07/13/24. Reviewed labs with pt. Fasting glucose 129. A1c 5.5%. Triglycerides 121. TC 168. LDL 99. HDL 45. Has lost about 10 lbs since last office visit in January. [facility] Medical History Hyperlipidemia Deviated nasal septum Steatosis, liver Psoriasis PSA (psoriatic arthritis) Surgical History (Updated 07/15/24 @ 09:00 by SOPHIA Thrasher) H/O oral surgery History of nasal surgery Family History Father Diabetes HTN (hypertension) Mother Diabetes Social History Household Members: Spouse Housing: House Alcohol intake: current Alcohol intake frequency: holidays/special occasions only Patient Tobacco Use Status: Former Tobacco user e-Cigarette/Vaping Use: Never Used service: No Current occupational status: employed Cognitive needs: No Hearing needs: No Vision needs: No Questionnaire PHQ-9 Over the last 2 weeks, how often have you been bothered by any of the following problems? 1. Little interest or pleasure in doing things: not at all 2. Feeling down, depressed, or hopeless: not at all 3. Trouble falling or staying asleep, or sleeping too much: more than half the days 4. Feeling tired or having little energy: not at all 5. Poor appetite or overeating: not at all 6. Feeling bad about yourself - or that you are a failure or have let yourself or your family down: not at all 7. Trouble concentrating on things, such as reading the newspaper or watching television: not at all 8. Moving or speaking so slowly that other people could have noticed. Or the opposite - being so fidgety or restless that you have been moving around a lot more than usual: not at all 9. Thoughts that you would be better off or of hurting yourself in some way: not at all Total score: 2 Depression Screening Interpretation: Negative Depression Screening Done: Yes 37111 - PHQ-9 Billing: Yes Source: Developed by Drs. Alphonso Matute, Karla Macario, Dougie Cha and colleagues, with an educational cristina from [employer]. Thrive Questionnaire Date Thrive assessed: 07/15/24 I am a: Patient What is your living situation today?: I have a steady place to live Within the past 12 months, did the food you bought not last and you didn't have the money to get more?: Never true Within the past 12 months, did you worry whether your food would run out before you got money to buy more?: Never true Do you have trouble paying for medicines?: No Do you have trouble getting transportation to medical appointments?: No Do you have trouble paying your heating and electricity bill?: No Do you have trouble taking care of your child, family member or friend?: No Do you have trouble with day-to-day activities such as bathing, preparing meals, shopping, managing finances, etc.?: No Are you currently unemployed and looking for a job?: No Are you interested in more education?: No Please select the resources that you would like help with: None Currently or been in a relationship where the following occur: No concerns reported THRIVE Score: 0 AUDIT C Alcohol Use Questionnaire (AUDIT-C) 1. How often do you have a drink containing alcohol?: 2-3 times a week 2. How many drinks containing alcohol do you have on a typical day when you are drinking?: 5 or 6 3. How often do you have six or more drinks on one occasion?: Monthly Total Score: 7 Score Reviewed/Action Taken: Yes DEREK-7 AMB Questionnaire DEREK-7 Date DEREK - 7 assessed: 07/15/24 Feeling nervous, anxious, or on edge: 0 = Not at all Not being able to stop or control worryin = Not at all Worrying too much about different things: 0 = Not at all Trouble relaxin = Not at all Being so restless that it is hard to sit still: 0 = Not at all Becoming easily annoyed or irritable: 0 = Not at all Feeling afraid as if something awful might happen: 0 = Not at all Total DEREK-7 score (0-4 normal; 5-9 mild; 10-14 moderate; 15-21 severe): 0 Source: Developed by Drs. Alphonso Matute, Karla Macario, Dougie Cha and colleagues, with an educational cristina from [employer]. DEREK-7 Assessment Billing DEREK-7 Assessment Tool: DEREK-7 Assessment 47355 Review of Systems Const Denies chills, Denies fatigue, Denies fever(s), Denies headache(s) and Denies weakness Eyes Denies change in vision ENT Denies dizziness, Denies headache(s), Denies hearing loss, Denies nasal congestion, Denies sinus pain, Denies sinus pressure and Denies sore throat Card Denies chest pain, Denies lightheadedness, Denies dyspnea and Denies other (palpitations) Resp Denies cough, Denies dyspnea and Denies wheezing GI Denies abdominal pain, Denies melena, Denies hematochezia, Denies change in bowel habits, Denies dyspepsia and Denies nausea Denies hematuria and Denies dysuria Musc Denies abnormal gait, Denies myalgias, Denies arthralgias, Denies numbness and Denies tingling Skin/Breast Denies rash, Denies unusual bruising and Denies wounds Neuro Denies abnormal gait, Denies dizziness, Denies headache(s), Denies memory loss, Denies numbness, Denies Sensory deficit (Neuro), Denies tingling and Denies weakness Psych Denies anxiety, Denies depression and Denies memory loss Endo Denies cold intolerance, Denies fatigue, Denies heat intolerance, Denies polydipsia and Denies polyuria Roly/Lymph Denies easy bleeding and Denies easy bruising Aller/Immun Denies wheezing Physical exam (Primary Care) Vital Signs: Last Vital Signs Temp 98.0 F 07/15/24 09:02 Pulse 97 07/15/24 09:02 Resp 14 07/15/24 09:02 BP 120/76 07/15/24 09:02 Pulse Ox 96 07/15/24 09:02 Oxygen Delivery Method Room Air 07/15/24 09:02 BMI result Body Mass Index 33.3 Tobacco/Smoking Status: Tobacco use Status Tobacco use date assessed 07/15/24 07/15/24 09:05 Patient Tobacco Use Status Former Tobacco user 07/15/24 09:05 e-Cigarette/Vaping Use Never Used 07/15/24 09:05 PHQ-9: PHQ-9 Score PHQ-9: Total score 2 07/15/24 09:11 Depression Screening Interpretation: Negative Thrive Assessment: Date of Thrive Assessment Date Thrive assessed 07/15/24 07/15/24 09:05 Currently or been in a relationship where the following occur: No concerns reported Const General: no acute distress, well developed, alert and awake Nutritional Appearance: well nourished Orientation/consciousness: patient oriented x3 HENMT Head: Yes normocephalic and Yes atraumatic Ears: hearing grossly normal bilaterally and TM's normal bilaterally General nose exam: Normal external nose present and Normal nares present Mouth: Normal oral and palatal mucosa present and moist mucous membranes Teeth and gingiva: dentition normal Throat: Yes posterior oropharynx normal Eyes General: appearance normal, both eyes and all related structures Pupils: Equal, round and reactive pupils present and Pupil accommodation reflex normal EOM: EOMs intact bilaterally Neck Neck: Yes normal visual inspection, Yes no lymphadenopathy and Yes trachea midline Thyroid: Thyroid normal Carotids: no bruits Lymphatic: no lymphadenopathy noted Chest Chest palpation & inspection: normal inspection of the chest Resp Effort & Inspection: normal respiratory effort Auscultation: clear to auscultation bilaterally Cardio Rate: regular rate Rhythm: regular rhythm Heart sounds: S1 normal heart sound present, S2 normal heart sound present, no gallops, no murmurs and no rubs Bruits: no abdominal aortic bruits and no carotid bruits GI Palpation (GI): No Abdominal aortic bruit present, Soft to palpation, nontender, No hepatosplenomegaly present and No Rebound tenderness present Auscultation: normal bowel sounds General: Yes no CVA tenderness Back/Spine/Pelvis Back: no CVA tenderness Cervical Spine: cervical ROM normal and No Cervical spine tenderness Thoracic/Lumbar Spine: thoraco-lumbar ROM normal, No pain with thoraco-lumbar ROM, No thoracic spinal tenderness and No lumbar spinal tenderness Skin Lesions: no lesions Rashes: no rashes Trauma: no lacerations or abrasions Wounds: no wounds Nails: normal Neuro General: patient oriented x3 Cranial nerves: Yes Equal, round and reactive pupils present Cognition (Neuro): normal cognition Gait exam (Neuro): Normal gait present Motor exam (neuro): 5/5 motor strength present throughout Sensory Exam: No Sensory deficit (Neuro) Deep tendon reflexes (DTR's): Right patellar reflex intensity grade: 2+ and Left patellar reflex intensity grade: 2+ Extrem General: Yes normal to inspection and No edema Psych Appearance: grossly normal Affect: normal affect Attitude: cooperative Thought process: Normal thought process present Coding Level of Care Code Est Pt Level 3 (89352) Est Pt Prev Care 40-64y(68443) Diagnoses Adult general medical exam Z00.00 Elevated fasting glucose R73.01 Hyperlipidemia E78.5 Rhinitis J31.0 PSA (psoriatic arthritis) L40.50 Screening for prostate cancer Z12.5 Screening for colon cancer Z12.11 Additional Codes DEREK-7 Assessment Billing - DEREK-7 Assessment Tool: DEREK-7 Assessment 95710 ([id number]) PHQ-9 - 70283 - PHQ-9 Billing: Yes ([id number]) Assessment & Plan Assessment & Plan (1) Adult general medical exam: Code(s): Z00.00 - Encounter for general adult medical examination without abnormal findings Category: Medical Plan: Presents?for?complete?physical?exam Encouraged?healthy?diet?with?active?lifestyle?and?plenty?of?exercise (2) Elevated fasting glucose: Code(s): R73.01 - Impaired fasting glucose Category: Medical Plan: Fasting?blood?sugars?remain?elevated.??His?A1c?is?still?at?top?normal?range. Encouraged?ongoing?weight?loss?and?diet?low?in?sugars?and?starches Encouraged?exercise (3) Hyperlipidemia: Code(s): E78.5 - Hyperlipidemia, unspecified Category: Medical Plan: Lipids?are?controlled?on?atorvastatin?20?mg?daily. Continue?weight?loss?and?exercise Continue?atorvastatin?as?prescribed (4) Rhinitis: Code(s): J31.0 - Chronic rhinitis Category: Medical Plan: Rhinitis?and?unilateral?congestion & discharge?left?side Will?refer?to?ENT? He?will?call?to?let?me?know?where?he?would?like?referrals (5) PSA (psoriatic arthritis): Comment: axial & peripheral involvement Methotrexate: Treated for 13 years. Stopped December 2021 due to increased LFTs. Humira: 02/2022 -March 2021. Stopped due to diffuse rash and hives Enbrel: April 2021 to present effective Code(s): L40.50 - Arthropathic psoriasis, unspecified Category: Medical Plan: Followed?by?rheumatology Continues?Enbrel Stable Follow-up?with?rheumatology?as?recommended (6) Screening for prostate cancer: Code(s): Z12.5 - Encounter for screening for malignant neoplasm of prostate Category: Medical Plan: PSA?was?within?normal?range Will?continue?annual?screening (7) Screening for colon cancer: Code(s): Z12.11 - Encounter for screening for malignant neoplasm of colon Category: Medical Plan: Followed by?[facility]?gastroenterology Colonoscopy?in?2023 Follow-up?with?GI?as?recommended
[2024-07-15 09:02] VITALS: BP 120/76; PULSE 97; RESP 14; TEMP 36.7; O2SAT 96; BMI 33.3
== END 2024-07-15 09:49 | disposition home or self-care (01) ==
LOC: HO.HMCFM 08:53
PROVIDERS: PCP Family Medicine; Visit Provider Family Medicine
DX: Z00.00 Encounter for general adult medical examination without abnormal findings (principal); J31.0 Chronic rhinitis; R73.01 Impaired fasting glucose; L40.50 Arthropathic psoriasis, unspecified; E78.5 Hyperlipidemia, unspecified; Z12.5 Encounter for screening for malignant neoplasm of prostate; Z12.11 Encounter for screening for malignant neoplasm of colon

== ENCOUNTER → 2024-07-15 08:52 | Outpatient (BNVA) | payer OTHER, SELFPAY | PROVIDERS: PCP Family Medicine; Visit Provider Family Medicine | DX: Z00.00 Encounter for general adult medical examination without abnormal findings (principal); R73.01 Impaired fasting glucose; E78.5 Hyperlipidemia, unspecified; J31.0 Chronic rhinitis; L40.50 Arthropathic psoriasis, unspecified; Z79.899 Other long term (current) drug therapy | CPT/HCPCS: 96127 ==

== ENCOUNTER 2024-12-15 07:28 | Outpatient (REF) | payer OTHER, SELFPAY ==
[2024-12-15 11:50] LABS: MANUAL DIFF FLAG NO
[2024-12-15 12:09] LABS: Hematocrit 46.2 % (42.0-52.0); Hemoglobin 16.0 g/dl (14.0-18.0); Imm Gran Abs Auto 0.04 X10*3/uL (0.00-0.03); Imm Gran Pct Auto 0.5 % (0.0-0.4); Lymphocytes Absolute Auto 2.0 X10*3/uL (1.2-4.9); Mean Corpuscular HGB Conc 34.6 g/dl (31.0-36.0); Mean Corpuscular Hemoglobin 31.0 pg (27.0-33.0); Mean Corpuscular Volume 89.5 fL (80.0-98.0); NRBC Abs Auto 0.000 X10*3/uL (0.0-0.012); NRBC Pct Auto 0.0 /100WBC (0.0-0.2); Platelet Count 275 X10*3/uL (160-400); Red Blood Count 5.16 X10*6/uL (4.60-5.80); White Blood Count 7.6 X10*3/uL (4.8-10.8)
[2024-12-15 13:00] LABS: Alanine Aminotransferase 63 U/L (0-40); Albumin Level 4.8 g/dL (3.5-5.0); Alkaline Phosphatase 88 U/L (39-117); Anion Gap 11 (12-20); Aspartate Amino Transferase 40 U/L (5-37); Blood Urea Nitrogen 15 mg/dL (9-16); Calcium 9.0 mg/dL (8.4-10.2); Carbon Dioxide 23 mmol/L (22-29); Chloride 108 mmol/L (96-108); Estimated Glomerular Filt Rate > 60; Potassium 4.4 mmol/L (3.3-5.1); Sodium 138 mmol/L (135-145); Total Protein 7.6 g/dL (6.5-8.0)
[2024-12-16 04:29] LABS: HBS Num1 0.00 mIU/mL (0-7.99); HBc Num1 0.04 S/CO (0.00-0.79); Hepatitis A Antibody IgM 0.13 Index (0-0.79); ~Hepatitis A Antibody IgM Nonreactive (Nonreactive); ~Hepatitis B Surface Antibody NONREACTIVE (Nonreactive)
[2024-12-16 04:30] LABS: HBsAGNum1 0.39 S/CO (0.00-0.99); Hepatitis B Surface Antigen Negative (Negative); ~HepC Num1 0.06 S/CO (0.00-0.79); ~Hepatitis C Antibody Nonreactive (Nonreactive)
== END 2024-12-15 07:29 | disposition home or self-care (01) ==
LOC: HO.WFDLDS 07:28
PROVIDERS: Visit Provider Student in an Organized Health Care Education/Training Program
DX: L40.50 Arthropathic psoriasis, unspecified (principal)
CPT/HCPCS: 36415; 80053; 85025; 85652; 86481; 86704; 86706; 86709; 86803; 87340

== ENCOUNTER 2024-12-29 08:19 | Outpatient (AMB) | payer OTHER, SELFPAY ==
--- NOTE | 2024-12-29 08:28 | A.OFFPC_ITS ---
Vital Signs 12/29/24 08:33 12/29/24 09:11 Height 6 ft 2 in Weight 272 lb 4 oz BMI 35.0 BP 151/94 H 153/94 H Blood Pressure Location Rt brachial Lt brachial Position Sitting Sitting Respiration 16 Pulse 82 Pulse Source Pulse Oximeter Temp 97.8 F Temp Source Oral Pulse Oximetry (%) 95 Oxygen Delivery Method Room Air Intake Visit Reasons: f/u elevated fasting glucose Intake Note: patient here for follow up on elevated fasting glucose Rail Splitter Required: No Allergies adalimumab (From Humira(CF)) Allergy (Severe, Verified 12/29/24 08:33) Anaphylaxis Medication List - Last Reconciled 12/29/24 by Bob Marino MD atorvastatin 20 mg PO BEDTIME 90 days Enbrel SureClick (etanercept) 50 mg subcut QWEEK NS Tobacco use date assessed: 12/29/24 Dental Screening Dental Screen Date: 12/29/24 Did you have a dental visit in the last 12 months?: Yes Did you have a dental problem in the last 6 months where you did not have access to dental care?: No Was dental information given to patient?: Patient has dentist HPI f/u elevated fasting glucose HPI Details 54 y/o male presents to f/u elevated fas ting glucose. A1c today 12/29/24 5.7%. He notes he could exercise more often. Blood pressure today 151/94, 82p. Pt reports generalized anxiety which seems to be worsening. HPI Comments History of Present Illness Details Documentation assistance for Bob Marino MD, was provided by Tahir Clemens,? Refrigeration Operator on 12/29/2024 at 8:45 AM EST. I, Dr. Marino, have read, observed, and verified documentation. ? PFSH Medical History (Updated 12/29/24 @ 08:56 by Tahir Clemens) Hyperlipidemia Deviated nasal septum Steatosis, liver Psoriasis PSA (psoriatic arthritis) Surgical History (Updated 07/15/24 @ 09:00 by SOPHIA Thrasher) H/O oral surgery History of nasal surgery Family History Father Diabetes HTN (hypertension) Mother Diabetes Social History Household Members: Spouse Housing: House Alcohol intake: current Alcohol intake frequency: holidays/special occasions only Patient Tobacco Use Status: Former Tobacco user e-Cigarette/Vaping Use: Never Used service: No Current occupational status: employed Cognitive needs: No Hearing needs: No Vision needs: No Questionnaire Thrive Questionnaire Date Thrive assessed: 07/12/24 I am a: Patient What is your living situation today?: I have a steady place to live Within the past 12 months, did the food you bought not last and you didn't have the money to get more?: Never true Within the past 12 months, did you worry whether your food would run out before you got money to buy more?: Never true Do you have trouble paying for medicines?: No Do you have trouble getting transportation to medical appointments?: No Do you have trouble paying your heating and electricity bill?: No Do you have trouble taking care of your child, family member or friend?: No Do you have trouble with day-to-day activities such as bathing, preparing meals, shopping, managing finances, etc.?: No Are you currently unemployed and looking for a job?: No Are you interested in more education?: No Please select the resources that you would like help with: None Currently or been in a relationship where the following occur: No concerns reported THRIVE Score: 0 DEREK-7 AMB Questionnaire DEREK-7 Date DEREK - 7 assessed: 07/15/24 Source: Developed by Drs. Alphonso Matute, Karla Macario, Dougie Cha and colleagues, with an educational cristina from [employer]. Review of Systems Const Denies chills, Denies fatigue, Denies fever(s), Denies headache(s) and Denies weakness ENT Denies dizziness and Denies headache(s) Card Denies dyspnea Resp Denies cough, Denies dyspnea, Denies wheezing and Denies other (shortness of breath) Musc Denies numbness and Denies tingling Neuro Denies dizziness, Denies headache(s), Denies numbness, Denies tingling and Denies weakness Psych Reports anxiety and Denies depression Endo Denies fatigue Aller/Immun Denies wheezing Physical exam (Primary Care) Vital Signs: Last Vital Signs Temp 97.8 F 12/29/24 08:33 Pulse 82 12/29/24 08:33 Resp 16 12/29/24 08:33 BP 151/94 H 12/29/24 08:33 Pulse Ox 95 12/29/24 08:33 Oxygen Delivery Method Room Air 12/29/24 08:33 BMI result Body Mass Index 35.0 Tobacco/Smoking Status: Tobacco use Status Tobacco use date assessed 12/29/24 12/29/24 08:42 Patient Tobacco Use Status Former Tobacco user 12/29/24 08:29 e-Cigarette/Vaping Use Never Used 12/29/24 08:29 Thrive Assessment: Date of Thrive Assessment Date Thrive assessed 07/12/24 12/29/24 08:29 Currently or been in a relationship where the following occur: No concerns reported Const General: well developed; No acute distress Nutritional Appearance: well nourished Orientation/consciousness: patient oriented x3 HENMT Head: Yes normocephalic and Yes atraumatic Eyes General: appearance normal, both eyes and all related structures Pupils: Equal, round and reactive pupils present EOM: EOMs intact bilaterally Resp Effort & Inspection: normal respiratory effort Auscultation: clear to auscultation bilaterally Cardio Rate: regular rate Rhythm: regular rhythm Heart sounds: S1 normal heart sound present, S2 normal heart sound present, no gallops, no murmurs and no rubs Neuro General: patient oriented x3 and gait normal Cranial nerves: Yes Equal, round and reactive pupils present Psych Affect: normal affect Results AMB Hemoglobin A1c AMB Hemoglobin A1c 5.7 % Last Edit by Doreen Mckeon CMA on 12/29/24 09:03 Results Reviewed Results Reviewed: Laboratory Last Values Hgb A1c (Clinic) 5.7 % (4.0-6.0) 12/29/24 09:02 Coding Level of Care Code Est Pt Level 4 (57763) Diagnoses Pre-diabetes R73.03 Elevated blood pressure reading R03.0 Anxiety F41.9 Assessment & Plan Assessment & Plan (1) Pre-diabetes: Code(s): R73.03 - Prediabetes Category: Medical Plan: A1c 5.7%, pre diabetes range Work at diet low in sugars and starches Encouraged weight loss Encouraged exercise (2) Elevated blood pressure reading: Code(s): R03.0 - Elevated blood-pressure reading, without diagnosis of hypertension Category: Medical Plan: Blood pressure on initial presentation was 151/94. Unchanged after rechecking this. He notes he had an energy drink this morning Also gained about 13 lb. Will get him back in 1 month. If still elevated will discuss medication Encouraged weight loss and decrease in salt and sodium diet (3) Anxiety: Code(s): F41.9 - Anxiety disorder, unspecified Category: Medical Plan: Patient notes significant anxiety We discussed therapy and medication today. Discussed 1st and 2nd line medications for anxiety. He would like to try a medication Will start citalopram 20 mg daily. Also encouraged exercise Plan He will return in 1 month to follow-up labs including cholesterol. He is atorvastatin 20 mg daily. He has gained about 13 lb since his visit Will follow-up blood pressure Orders: Orders Microalbumin, Random (w Creat) Today I10 - Essential (primary) hypertension, R03.0 - Elevated blood-pressure reading, without diagnosis of hypertension UA CC w/rflx Micro + Cult Today R03.0 - Elevated blood-pressure reading, without diagnosis of hypertension, Z00.00 - Encounter for general adult medical examination without abnormal findings AMB Hemoglobin A1c Today R73.03 - Prediabetes Comprehensive [facility]. Panel Fast Today E78.5 - Hyperlipidemia, unspecified, Z00.00 - Encounter for general adult medical examination without abnormal findin gs Lipid Panel Today E78.5 - Hyperlipidemia, unspecified, Z00.00 - Encounter for general adult medical examination without abnormal findings TSH reflex Free T4 Today R03.0 - Elevated blood-pressure reading, without diagnosis of hypertension, Z00.00 - Encounter for general adult medical examination without abnormal findings Medications: New citalopram 20 mg PO DAILY 30 tabs 3RF 30 days
[2024-12-29 08:33] VITALS: BP 151/94; PULSE 82; RESP 16; TEMP 36.6; O2SAT 95; BMI 35.0
[2024-12-29 09:11] VITALS: BP 153/94
== END 2024-12-29 09:16 | disposition home or self-care (01) ==
LOC: HO.HMCFM 08:20
PROVIDERS: PCP Family Medicine; Visit Provider Family Medicine
DX: R73.03 Prediabetes (principal); R03.0 Elevated blood-pressure reading, without diagnosis of hypertension; F41.9 Anxiety disorder, unspecified

== ENCOUNTER → 2024-12-29 08:19 | Outpatient (BNVA) | payer OTHER, SELFPAY | PROVIDERS: PCP Family Medicine; Visit Provider Family Medicine | DX: R73.03 Prediabetes (principal); F41.9 Anxiety disorder, unspecified; I10 Essential (primary) hypertension; E78.5 Hyperlipidemia, unspecified | CPT/HCPCS: 83036 ==

== ENCOUNTER 2025-02-02 11:09 | Outpatient (AMB) | payer OTHER, SELFPAY ==
--- NOTE | 2025-02-02 11:35 | MHC.PC.OV ---
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 Had been elevated before at 153/94 on 12/29/24. BP today 128/86, 65p. [facility] Medical History (Updated 02/02/25 @ 11:57 by Bob Marino MD) Hyperlipidemia Deviated nasal septum Steatosis, liver Psoriasis PSA (psoriatic arthritis) Surgical History (Updated 07/15/24 @ 09:00 by SOPHIA Thrasher) H/O oral surgery History of nasal surgery Family History Father Diabetes HTN (hypertension) Mother Diabetes Social History Household Members: Spouse Housing: House Alcohol intake: current Alcohol intake frequency: holidays/special occasions only Patient Tobacco Use Status: Former Tobacco user e-Cigarette/Vaping Use: Never Used service: No Current occupational status: employed Cognitive needs: No Hearing needs: No Vision needs: No Questionnaire Thrive Questionnaire Date Thrive assessed: 07/12/24 I am a: Patient What is your living situation today?: I have a steady place to live Within the past 12 months, did the food you bought not last and you didn't have the money to get more?: Never true Within the past 12 months, did you worry whether your food would run out before you got money to buy more?: Never true Do you have trouble paying for medicines?: No Do you have trouble getting transportation to medical appointments?: No Do you have trouble paying your heating and electricity bill?: No Do you have trouble taking care of your child, family member or friend?: No Do you have trouble with day-to-day activities such as bathing, preparing meals, shopping, managing finances, etc.?: No Are you currently unemployed and looking for a job?: No Are you interested in more education?: No Please select the resources that you would like help with: None Currently or been in a relationship where the following occur: No concerns reported THRIVE Score: 0 DEREK-7 AMB Questionnaire DEREK-7 Date DEREK - 7 assessed: 07/15/24 Source: Developed by Drs. Alphonso Matute, Karla Macario, Dougie Cha and colleagues, with an educational cristina from [employer]. Physical exam (Primary Care) Vital Signs: Last Vital Signs Temp 98.2 F 02/02/25 11:36 Pulse 65 02/02/25 11:36 Resp 16 02/02/25 11:36 BP 128/86 02/02/25 11:36 Pulse Ox 95 02/02/25 11:36 Oxygen Delivery Method Room Air 02/02/25 11:36 BMI result Body Mass Index 34.4 Tobacco/Smoking Status: Tobacco use Status Tobacco use date assessed 12/29/24 02/02/25 11:39 Patient Tobacco Use Status Former Tobacco user 02/02/25 11:39 e-Cigarette/Vaping Use Never Used 02/02/25 11:39 Thrive Assessment: Date of Thrive Assessment Date Thrive assessed 07/12/24 02/02/25 11:39 Currently or been in a relationship where the following occur: No concerns reported Coding Level of Care Code Est Pt Level 3 (21376) Diagnoses Elevated blood pressure reading R03.0 Depression with anxiety F41.8 Elevated liver enzymes R74.8 Assessment & Plan Assessment & Plan (1) Elevated blood pressure reading: Code(s): R03.0 - Elevated blood-pressure reading, without diagnosis of hypertension Category: Medical Plan: Blood pressure is okay We can continue to monitor and I encouraged ongoing weight loss (2) Depression with anxiety: Code(s): F41.8 - Other specified anxiety disorders Category: Medical Plan: Patient notes significant improvements on citalopram Continue as prescribed (3) Elevated liver enzymes: Code(s): R74.8 - Abnormal levels of other serum enzymes Category: Medical Plan: Liver enzymes were elevated at prior measurement and he had gained 13 lb. Now working on weight loss Encouraged ongoing weight loss Will recheck with next blood draw
[2025-02-02 11:36] VITALS: BP 128/86; PULSE 65; RESP 16; TEMP 36.8; O2SAT 95; BMI 34.4
== END 2025-02-02 11:56 | disposition home or self-care (01) ==
LOC: HO.HMCFM 11:10
PROVIDERS: PCP Family Medicine; Visit Provider Family Medicine
DX: R03.0 Elevated blood-pressure reading, without diagnosis of hypertension (principal); F41.8 Other specified anxiety disorders; R74.8 Abnormal levels of other serum enzymes

== ENCOUNTER 2025-02-03 07:31 | Outpatient (AMB) | payer OTHER, SELFPAY ==
--- OUTSIDE RECORDS SUMMARY | 2025-02-03 07:34 | XMS_ITS ---
Author Organization Unknown ENCOUNTERS Encounter Performer Location Date Diagnosis Diagnosis Status Pre Admit [address] [address] [id number] [address] [address] [id number] NONA *Note: Encounters from your own facility or health system may be excluded. Allergies, Adverse Reactions, Alerts Allergen Type Severity Identification Date adalimumab drug allergy 4 [id number] Medications Name Date Quantity Days Supplied GPI Number
--- NOTE | 2025-02-03 07:44 | MHC.OFFVIS ---
Vital Signs 02/03/25 07:51 Height 6 ft 2 in Weight 266 lb 1.567 oz BMI 34.2 BP 142/89 H Blood Pressure Location Lt brachial Position Sitting Pulse 97 Pulse Source Pulse Oximeter Pulse Oximetry (%) 98 Oxygen Delivery Method Room Air Intake Visit Reasons: PsA Intake Note: Patient presents for PsA follow up. Allergies adalimumab (From Humira(CF)) Allergy (Severe, Verified 02/03/25 07:50) Anaphylaxis Medication List - Last Reconciled 02/03/25 by Aliza Delaney MD atorvastatin 20 mg PO BEDTIME 90 days citalopram 20 mg PO DAILY 30 days Enbrel SureClick (etanercept) 50 mg subcut QWEEK NS HPI Comments Details: Patient is a 54-year-old male with depression / anxiety, hyperlipidemia, prediabetes, psoriasis complicated by psoriatic arthritis here today for follow up Interval History: Patient last seen 02/04/[address] Mason - On Enbrel 50mg SC every week - Doing well overall. - Compliant with Enbrel weekly. Denies any joint pain or swelling. - Continues to have psoriatic nails in the left hand. those have not improved or progressed. Has subtle psoriasis patches on his left bass that are intermittently itchy. He applies lotion on them. Today - On Enbrel 50mg SC every week - Continues to do well - Has some AM stiffness but tolerable, will take an advil prior to a day of golf and usually feels great - Still has nail disease to the left hand only - No current PsO at this time Social Hx: Works as a [employer] Rheumatologic History: PsO c/b PsA Dx 2009 axial & peripheral involvement Methotrexate: Treated for 13 years. Stopped December 2021 due to increased LFTs. Humira: 02/2022 -March 2021. Stopped due to diffuse rash and hives Enbrel: April 2021 to present effective Current Rheumatology Medication(s): Enbrel 50mg SC weekly [facility] Medical History (Updated 02/03/25 @ 08:13 by Aliza Delaney MD) Hyperlipidemia Deviated nasal septum Steatosis, liver Psoriasis PSA (psoriatic arthritis) Surgical History H/O oral surgery History of nasal surgery Family History Father Diabetes HTN (hypertension) Mother Diabetes Social History Household Members: Spouse Housing: House Alcohol intake: current Alcohol intake frequency: holidays/special occasions only Patient Tobacco Use Status: Former Tobacco user e-Cigarette/Vaping Use: Never Used service: No Current occupational status: employed Cognitive needs: No Hearing needs: No Vision needs: No Review of Systems Narrative Review of Systems Constitutional: Denies fever, chills, weight loss ENT: Denies vision changes, eye pain or eye redness, dental caries, dry mouth GI: Denies nausea, vomiting, diarrhea, abdominal pain, change in BM Pulm: Denies SOB, PETERSON, hemoptysis, wheezing Cards: Denies chest pain, palpitations Skin: Denies Raynaud's, photosensitivity, WEED CONTROLLER: Denies headaches, weakness, paresthesias, recurrent falls MSK: as per HPI All other systems reviewed and are unremarkable except noted above Physical Exam Exam Exam: Vital signs reviewed Physical Examination CONSTITUITIONAL Patient alert and cooperative. Well appearing and in no apparent painful distress MSK Hands Right Hand: Able to make a fist. No swelling or tenderness to palpation of the MCPs, PIPs or DIPs. Left Hand: Able to make a fist. No swelling or tenderness to palpation of the MCPs, PIPs or DIPs. Wrists Right Wrist: Full ROM to flexion and extension. No swelling or TTP Left Wrist: Full ROM to flexion and extension. No swelling or TTP Elbows Right Elbow: Full ROM. No swelling or TTP. No TTP of the medial epicondyle. No TTP of the lateral epicondyle Left Elbow: Full ROM. No swelling or TTP. No TTP of the medial epicondyle. No TTP of the lateral epicondyle Shoulders Right shoulder: Full ROM. No swelling noted. No TTP of the AC joint. No TTP of the subacromial bursa. No TTP of the posterior shoulder Left shoulder: Full ROM. No swelling noted. No TTP of the AC joint. No TTP of the subacromial bursa. No TTP of the posterior shoulder Knees Right knee: Full ROM. No swelling noted. No TTP of the knee joint line. No TTP of pes anserine bursa Left knee: Full ROM. No swelling noted. No TTP of the knee joint line. No TTP of pes anserine bursa. Crepitations felt bilaterally Ankles Right ankle: Good ankle dorsiflexion and plantar flexion. No swelling. No TTP of the ankle joint Left ankle: Good ankle dorsiflexion and plantar flexion. No swelling. No TTP of the ankle joint Feet Right foot: Negative squeeze test Left foot: Negative squeeze test Tender points? No tenderness to palpation of the bilateral trapezius, supraspinatus, anterior costochondral junctions, bilateral suboccipital muscle insertions SKIN Onycholysis of the left hand nails Vital Signs: Last Vital Signs Pulse 97 02/03/25 07:51 BP 142/89 H 02/03/25 07:51 Pulse Ox 98 02/03/25 07:51 Oxygen Delivery Method Room Air 02/03/25 07:51 BMI result Body Mass Index 34.2 Results Reviewed Results Reviewed: Laboratory Tests 02/03/24 07/13/24 12/15/24 07:57 08:06 07:31 WBC 7.6 RBC 5.16 Hgb 16.0 Hct 46.2 Plt Count 275 ESR 1 Sodium 138 Potassium 4.4 Chloride 108 Carbon Dioxide 23 BUN 15 Creatinine 0.96 AST 26 40 H ALT 35 63 H C-Reactive Protein 0.17 Laboratory Tests 02/03/24 12/15/24 07:57 07:31 Hepatitis A IgM Ab Nonreactive Hep Bs Antigen Negative Hep Bs Antibody NONREACTIVE Hep B Core Total Ab Nonreactive Hepatitis C Ab (EIA) Nonreactive TB Test (T-Spot) Com Negative Assessment & Plan Assessment & Plan (1) PSA (psoriatic arthritis): Comment: Dx around 2009 axial & peripheral involvement Methotrexate: Treated for 13 years. Stopped December 2021 due to increased LFTs. Humira: 02/2022 -March 2021. 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 Plan: #Long-term Use of TNF Inhibitors: Etanercept Discussed with the patient the benefits and risks of TNF inhibitors for the management of the rheumatic condition Benefits include reduce pain, maintenance of remission and reduction of flares as well as progression of the disease Risks include injection sites/infusion reactions, serious infections (such as bacterial infections, opportunistic infections), malignancy, delaminating syndromes, autoimmune phenomena, CHF exacerbations, palmar plantar psoriasis and cytopenias Recommended rotating injection sites, and holding medication during and for up to 1 week after resolution of a febrile illness or open skin wound Plan This is my first visit with the patient. 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
[2025-02-03 07:51] VITALS: BP 142/89; PULSE 97; O2SAT 98; BMI 34.2
== END 2025-02-03 08:12 | disposition home or self-care (01) ==
LOC: HO.RHES 07:32
PROVIDERS: PCP Family Medicine; Visit Provider Student in an Organized Health Care Education/Training Program
DX: L40.50 Arthropathic psoriasis, unspecified (principal); Z51.81 Encounter for therapeutic drug level monitoring; Z79.620 Long term (current) use of immunosuppressive biologic
CPT/HCPCS: 99214; G2211

== ENCOUNTER 2025-02-03 07:31 | Outpatient (REF) | payer OTHER, SELFPAY ==
[2025-02-03 14:15] LABS: Alanine Aminotransferase 60 U/L (0-40); Aspartate Amino Transferase 33 U/L (5-37)
[2025-02-06 10:13] LABS: TS Negative Control Passed; TS Panel A 0; TS Panel B 0; TS Positive Control Passed; TSpotTB Negative (Negative)
== END 2025-02-03 07:32 | disposition home or self-care (01) ==
LOC: HO.HKASLDS 07:31
PROVIDERS: PCP Family Medicine; Visit Provider Student in an Organized Health Care Education/Training Program
DX: L40.50 Arthropathic psoriasis, unspecified (principal); Z51.81 Encounter for therapeutic drug level monitoring; Z11.1 Encounter for screening for respiratory tuberculosis; Z79.620 Long term (current) use of immunosuppressive biologic; Z79.899 Other long term (current) drug therapy
CPT/HCPCS: 36415; 84450; 84460; 86481